=== PATIENT | male | born 1950 | race Caucasian/White ===

== ENCOUNTER 2020-11-22 09:17 | Outpatient (REF) | payer OTHER, SELFPAY ==
[2020-11-22 12:04] LABS: Alanine Aminotransferase 40 U/L (0-40); Anion Gap 15 (12-20); Aspartate Amino Transferase 26 U/L (5-37); Blood Urea Nitrogen 15 mg/dL (9-16); Calcium 8.9 mg/dL (8.4-10.2); Carbon Dioxide 27 mmol/L (22-29); Chloride 102 mmol/L (96-108); Cholesterol 226 mg/dL; Estimated Glomerular Filt Rate 57; Glucose Fasting 88 mg/dL (60-99); HDL Cholesterol 46 mg/dL; LDL Cholesterol Calculated 127 mg/dl; Potassium 3.8 mmol/l (3.3-5.1); Sodium 140 mmol/L (135-145); Triglycerides 265 mg/dL
[2020-11-22 12:09] LABS: Vitamin D 25-OH Total 26.7 ng/mL (>30)
== END 2020-11-22 09:18 | disposition home or self-care (01) ==
LOC: HO.HMGCLDS 09:17
PROVIDERS: PCP Internal Medicine; Visit Provider Internal Medicine
DX: I10 Essential (primary) hypertension (principal); E78.5 Hyperlipidemia, unspecified
CPT/HCPCS: 36415; 80048; 80061; 82306; 84450; 84460

== ENCOUNTER 2021-03-05 10:32 | Outpatient (REF) | payer OTHER, SELFPAY ==
[2021-03-05 12:17] LABS: Vitamin D 25-OH Total 62.2 ng/mL (>30)
[2021-03-05 12:24] LABS: Alanine Aminotransferase 29 U/L (0-40); Anion Gap 14 (12-20); Aspartate Amino Transferase 26 U/L (5-37); Blood Urea Nitrogen 17 mg/dL (9-16); Calcium 9.3 mg/dL (8.4-10.2); Carbon Dioxide 25 mmol/L (22-29); Chloride 106 mmol/L (96-108); Cholesterol 201 mg/dL; Estimated Glomerular Filt Rate 56; Glucose Fasting 93 mg/dL (60-99); HDL Cholesterol 43 mg/dL; LDL Cholesterol Calculated 116 mg/dl; Potassium 3.8 mmol/L (3.3-5.1); Sodium 141 mmol/L (135-145); Triglycerides 213 mg/dL
== END 2021-03-05 10:33 | disposition home or self-care (01) ==
LOC: HO.HMGCLDS 10:32
PROVIDERS: PCP Internal Medicine; Visit Provider Internal Medicine
DX: E78.5 Hyperlipidemia, unspecified (principal); I10 Essential (primary) hypertension
CPT/HCPCS: 36415; 80048; 80061; 82306; 84450; 84460

== ENCOUNTER 2021-03-21 08:26 | Outpatient (REF) | payer OTHER, SELFPAY | END 2021-03-21 08:27 | disposition home or self-care (01) | LOC: HO.HMGCLDS 08:26 | PROVIDERS: PCP Internal Medicine; Visit Provider Urology | DX: Z12.5 Encounter for screening for malignant neoplasm of prostate (principal); N40.1 Benign prostatic hyperplasia with lower urinary tract symptoms | CPT/HCPCS: 36415; 84153 ==

== ENCOUNTER → 2021-03-28 09:25 | Outpatient (BNVA) | payer OTHER, SELFPAY | PROVIDERS: PCP Internal Medicine; Visit Provider Urology | DX: Z13.89 Encounter for screening for other disorder (principal) | CPT/HCPCS: 99212 ==

== ENCOUNTER 2021-09-03 09:01 | Outpatient (REF) | payer OTHER, SELFPAY ==
[2021-09-03 12:03] LABS: Alanine Aminotransferase 29 U/L (0-40); Anion Gap 13 (12-20); Aspartate Amino Transferase 42 U/L (5-37); Blood Urea Nitrogen 13 mg/dL (9-16); Carbon Dioxide 26 mmol/L (22-29); Chloride 104 mmol/L (96-108); Cholesterol 180 mg/dL; Estimated Glomerular Filt Rate 57; Glucose Fasting 104 mg/dL (60-99); HDL Cholesterol 44 mg/dL; LDL Cholesterol Calculated 111 mg/dl; Potassium 4.4 mmol/L (3.3-5.1); Sodium 139 mmol/L (135-145); Triglycerides 129 mg/dL
== END 2021-09-03 09:02 | disposition home or self-care (01) ==
LOC: HO.HMGCLDS 09:01
PROVIDERS: PCP Internal Medicine; Visit Provider Internal Medicine
DX: E78.5 Hyperlipidemia, unspecified (principal); I10 Essential (primary) hypertension
CPT/HCPCS: 36415; 80048; 80061; 84450; 84460

== ENCOUNTER → 2021-10-02 09:31 | Outpatient (BNVA) | payer OTHER, SELFPAY | PROVIDERS: PCP Internal Medicine; Visit Provider Urology | DX: N40.0 Benign prostatic hyperplasia without lower urinary tract symptoms (principal); R97.20 Elevated prostate specific antigen [PSA] | CPT/HCPCS: 51798; 99212 ==

== ENCOUNTER 2022-01-08 08:52 | Outpatient (REF) | payer OTHER, SELFPAY ==
[2022-01-08 12:02] LABS: Alanine Aminotransferase 29 U/L (0-40); Albumin Level 4.2 g/dL (3.5-5.0); Alkaline Phosphatase 40 U/L (39-117); Anion Gap 12 (12-20); Aspartate Amino Transferase 22 U/L (5-37); Blood Urea Nitrogen 17 mg/dL (9-16); Calcium 9.3 mg/dL (8.4-10.2); Carbon Dioxide 29 mmol/L (22-29); Chloride 105 mmol/L (96-108); Cholesterol 189 mg/dL; Estimated Glomerular Filt Rate 53; Glucose Fasting 96 mg/dL (60-99); HDL Cholesterol 39 mg/dL; LDL Cholesterol Calculated 106 mg/dl; Potassium 4.6 mmol/L (3.3-5.1); Sodium 141 mmol/L (135-145); Total Protein 7.1 g/dL (6.5-8.0); Triglycerides 220 mg/dL
[2022-01-08 12:11] LABS: Vitamin D 25-OH Total 57.4 ng/mL (>30)
== END 2022-01-08 08:53 | disposition home or self-care (01) ==
LOC: HO.HMGCLDS 08:52
PROVIDERS: PCP Internal Medicine; Visit Provider Internal Medicine
DX: I10 Essential (primary) hypertension (principal); E78.5 Hyperlipidemia, unspecified; Z86.39 Personal history of other endocrine, nutritional and metabolic disease
CPT/HCPCS: 36415; 80053; 80061; 82306

== ENCOUNTER 2022-07-09 08:55 | Outpatient (REF) | payer OTHER, SELFPAY ==
[2022-07-09 11:43] LABS: Alanine Aminotransferase 21 U/L (0-40); Anion Gap 16 (12-20); Aspartate Amino Transferase 23 U/L (5-37); Blood Urea Nitrogen 14 mg/dL (9-16); Calcium 9.2 mg/dL (8.4-10.2); Carbon Dioxide 25 mmol/L (22-29); Chloride 103 mmol/L (96-108); Cholesterol 232 mg/dL; Estimated Glomerular Filt Rate 58; Glucose Fasting 97 mg/dL (60-99); HDL Cholesterol 44 mg/dL; LDL Cholesterol Calculated 135 mg/dl; Sodium 140 mmol/L (135-145); Triglycerides 267 mg/dL
== END 2022-07-09 08:56 | disposition home or self-care (01) ==
LOC: HO.HMGCLDS 08:55
PROVIDERS: PCP Internal Medicine; Visit Provider Internal Medicine
DX: E78.5 Hyperlipidemia, unspecified (principal); I10 Essential (primary) hypertension
CPT/HCPCS: 36415; 80048; 80061; 82306; 84450; 84460

== ENCOUNTER → 2022-10-07 09:18 | Outpatient (BNVA) | payer OTHER, SELFPAY | PROVIDERS: PCP Internal Medicine; Visit Provider Urology | DX: N40.0 Benign prostatic hyperplasia without lower urinary tract symptoms (principal); R97.20 Elevated prostate specific antigen [PSA] | CPT/HCPCS: 51798; 99212 ==

== ENCOUNTER 2022-10-20 08:20 | Outpatient (REF) | payer OTHER, SELFPAY ==
[2022-10-20 12:55] LABS: Alanine Aminotransferase 27 U/L (0-40); Anion Gap 12 (12-20); Aspartate Amino Transferase 21 U/L (5-37); Blood Urea Nitrogen 15 mg/dL (9-16); Calcium 9.4 mg/dL (8.4-10.2); Carbon Dioxide 28 mmol/L (22-29); Chloride 104 mmol/L (96-108); Cholesterol 235 mg/dL; Estimated Glomerular Filt Rate 59; Glucose Fasting 96 mg/dL (60-99); HDL Cholesterol 43 mg/dL; LDL Cholesterol Calculated 135 mg/dl; Potassium 4.1 mmol/L (3.3-5.1); Sodium 140 mmol/L (135-145); Triglycerides 285 mg/dL
== END 2022-10-20 08:21 | disposition home or self-care (01) ==
LOC: HO.HMGCLDS 08:20
PROVIDERS: PCP Internal Medicine; Visit Provider Internal Medicine
DX: E78.5 Hyperlipidemia, unspecified (principal); I10 Essential (primary) hypertension
CPT/HCPCS: 36415; 80048; 80061; 84450; 84460

== ENCOUNTER 2023-02-18 08:26 | Outpatient (REF) | payer OTHER, SELFPAY ==
[2023-02-18 12:09] LABS: Alanine Aminotransferase 24 U/L (0-40); Anion Gap 11 (12-20); Aspartate Amino Transferase 28 U/L (5-37); Blood Urea Nitrogen 16 mg/dL (9-16); Calcium 9.1 mg/dL (8.4-10.2); Carbon Dioxide 27 mmol/L (22-29); Chloride 107 mmol/L (96-108); Cholesterol 188 mg/dL; Estimated Glomerular Filt Rate 60; Glucose Fasting 94 mg/dL (60-99); HDL Cholesterol 48 mg/dL; LDL Cholesterol Calculated 109 mg/dl; Sodium 141 mmol/L (135-145); Triglycerides 155 mg/dL
[2023-02-18 12:25] LABS: Vitamin D 25-OH Total 58.8 ng/mL (>30)
== END 2023-02-18 08:27 | disposition home or self-care (01) ==
LOC: HO.HMGCLDS 08:26
PROVIDERS: PCP Internal Medicine; Visit Provider Internal Medicine
DX: I10 Essential (primary) hypertension (principal); E78.5 Hyperlipidemia, unspecified
CPT/HCPCS: 36415; 80048; 80061; 82306; 84450; 84460

== ENCOUNTER 2023-02-23 11:47 | Outpatient (AMB) | payer OTHER, SELFPAY ==
--- NOTE | 2023-02-23 11:50 | A.OFFPC_ITS ---
Vital Signs 02/23/23 11:51 Height 5 ft 10 in Weight 206 lb 2 oz BMI 29.5 BP 130/76 Blood Pressure Location Rt brachial Position Sitting Pulse 82 Pulse Source Pulse Oximeter Pulse Oximetry (%) 97 Oxygen Delivery Method Room Air Intake Visit Reasons: Annual PE Intake Note: Pt is here today for his annual PE. Allergies No Known Allergies [No Known Allergies*] Allergy (Verified 11/09/23 15:52) Medication List - Last Reconciled 02/23/23 by Dee Dee Kincaid MD amlodipine 10 mg PO DAILY aspirin (Enteric Coated Aspirin) 81 mg PO DAILY coenzyme Q10 (Co Q-10) 100 mg PO DAILY finasteride 5 mg orally 3x week; hydrochlorothiazide 12.5 mg (1/2 x 25 mg) PO DAILY lisinopril 40 mg PO DAILY multivitamin 1 tab PO DAILY omega 1-omv-mlu-fish oil-krill 700 mg-600 mg- 900 mg (MegaRed Advanced 4-in-1) caps PO pravastatin 40 mg PO BEDTIME Tobacco use date assessed: 02/23/23 Fall risk assessment: No Falls in past year Last assessed Fall Risk: 02/23/23 HPI Annual PE HPI Details 72-year-old male with hypertension, dysl ipidemia, and benign prostatic hyperplasia , here today for a physical exam. He has been feeling well, compliant with taking his medications and following recommended diet. Recent fasting labs showed normal fasting sugar cholesterol, vitamin-D level ,and renal function. Blood pressure within normal limits on current treatment. Up-to-date with his colon cancer screening, had a negative Cologuard testing 2021 Up-to-date with all his vaccinations, including the COVID bivalent booster but needs an updated pneumonia vaccine/Prevnar 20. . Currently taking care of his of 48 years , who is on hospice. States that he is getting lot of support from [facility], hospice nurses and family members [facility] Medical History (Updated 11/09/23 @ 16:19 by Dee Dee Kincaid MD) Anxiety and depression Mixed dyslipidemia Impaired fasting glucose Pruritus Essential hypertension Benign prostatic hyperplasia Surgical History Status post thoracostomy tube placement Family History Father CAD (coronary artery disease) HTN (hypertension) Myocardial infarction Mother Dementia Brother BPH (benign prostatic hyperplasia) Social History Housing: House Alcohol intake: never Patient Tobacco Use Status: Former Tobacco user Years Smoked: 10 yrs e-Cigarette/Vaping Use: Never Used Current occupational status: retired Cognitive needs: No Hearing needs: No Vision needs: No Questionnaire PHQ-9 Over the last 2 weeks, how often have you been bothered by any of the following problems? 1. Little interest or pleasure in doing things: not at all 2. Feeling down, depressed, or hopeless: not at all 3. Trouble falling or staying asleep, or sleeping too much: not at all 4. Feeling tired or having little energy: not at all 5. Poor appetite or overeating: not at all 6. Feeling bad about yourself - or that you are a failure or have let yourself or your family down: not at all 7. Trouble concentrating on things, such as reading the newspaper or watching television: not at all 8. Moving or speaking so slowly that other people could have noticed. Or the opposite - being so fidgety or restless that you have been moving around a lot more than usual: not at all 9. Thoughts that you would be better off or of hurting yourself in some way: not at all Total score: 0 Depression Screening Interpretation: Negative 42379 - PHQ-9 Billing: Yes Source: Developed by Drs. Bharat Velasquez, Jena Lynne, Emery Maier and colleagues, with an educational sadie from [employer]. Thrive Questionnaire Date Thrive assessed: 10/24/22 AUDIT C Alcohol Use Questionnaire (AUDIT-C) 1. How often do you have a drink containing alcohol?: Never Total Score: 0 RIGOBERTO-7 AMB Questionnaire RIGOBERTO-7 Date RIGOBERTO - 7 assessed: 10/24/22 Source: Developed by Drs. Bharat Velasquez, Jena Lynne, Emery Maier and colleagues, with an educational sadie from [employer]. Review of Systems Const Denies body aches, Denies fatigue, Denies fever(s), Denies headache(s) and Denies weakness Eyes Details: Sees Dr. Medel for his routine eye exam, currently being monitored for glaucoma Denies change in vision ENT Denies dizziness, Denies headache(s), Denies nasal congestion, Denies nasal discharge and Denies sore throat Card Denies chest pain, Denies lightheadedness, Denies palpitations and Denies d yspnea Resp Denies chest congestion, Denies cough, Denies dyspnea and Denies wheezing GI Denies abdominal pain, Denies change in bowel habits and Denies heartburn Denies dysuria, Denies urinary frequency and Denies urinary urgency Musc Reports no additional complaints Skin/Breast Denies breast pain, Denies breast mass, Denies lesions and Denies rash Neuro Denies dizziness, Denies headache(s) and Denies weakness Psych Reports no additional complaints Endo Denies fatigue, Denies polydipsia, Denies polyuria and Denies palpitations Luis/Lymph Denies easy bruising Aller/Immun Denies seasonal rhinorrhea and Denies wheezing Physical exam (Primary Care) Vital Signs: Last Vital Signs Pulse 82 02/23/23 11:51 BP 130/76 02/23/23 11:51 Pulse Ox 97 02/23/23 11:51 Oxygen Delivery Method Room Air 02/23/23 11:51 BMI result Body Mass Index 29.5 BMI Assessment/Plan discussion: High BMI High, discussed plan: lifestyle, weight reduction, dietary and physical activity Tobacco/Smoking Status: Tobacco use Status Tobacco use date assessed 02/23/23 02/23/23 11:54 Patient Tobacco Use Status Former Tobacco user 02/23/23 11:54 e-Cigarette/Vaping Use Never Used 02/23/23 11:54 PHQ-9: PHQ-9 Score PHQ-9: Total score 0 02/23/23 12:53 Depression Screening Interpretation: Negative Thrive Assessment: Date of Thrive Assessment Date Thrive assessed 10/24/22 02/23/23 11:54 Const General: cooperative, healthy appearing and comfortable Nutritional Appearance: obese Orientation/consciousness: patient oriented x3 Limitations: no limitations HENMT Head: Yes normocephalic and Yes atraumatic Ears: external ears normal General nose exam: Normal external nose present Face and sinus: Yes face symmetric Mouth: Normal oral and palatal mucosa present and moist mucous membranes Eyes General: appearance normal, both eyes and all related structures Neck Neck: Yes full ROM, Yes no lymphadenopathy and Yes supple Resp Effort & Inspection: normal respiratory effort and able to speak in complete sentences Auscultation: clear to auscultation bilaterally Cardio Rate: regular rate Rhythm: regular rhythm Heart sounds: S1 normal heart sound present and S2 normal heart sound present GI Inspection: Yes obesity Palpation (GI): Soft to palpation, nontender and no guarding Auscultation: normal bowel sounds Male General Exam: Yes normal external exam Back/Spine/Pelvis Back: No back tenderness Skin General skin exam: no rashes or lesions noted Neuro General: patient oriented x3, gait normal, moves all extremities and no focal motor deficits Extrem General: Yes full ROM, Yes no joint enlargement, Yes no pedal edema and Yes normal gait Psych Appearance: grossly normal Mental Status: mental status grossly normal Speech and movement: Normal speech and movement present Affect: normal affect Thought process: Normal thought process present Immunizations pneumoc 20-lito conj-dip cr(PF) 0.5 mL IM syringe Performing Provider: Dee Dee Kincaid MD Performing Location: [facility] Administered by: EVANGELINA Tracy on 02/23/23 12:54 Dose Route Admin Location Dispensed Lot Number Expiration Date NDC Almond Paste Mixer 0.5 mL IM Left Deltoid 0.5 mL [id number] 07/02/24 7862-5747-47 [employer] VIS Given Date VIS Provided VIS Publication Date 02/23/23 Single Vaccine 21 Eligibility Eligibility Date Funding Source Not VFC Eligible 02/23/23 Private Results Reviewed Results Reviewed: RUN: 02/23/23 1113 PAGE 1 [facility] [address] [place] [id number] Fuel Management Handler: Bartolome Montalvo M.D. Specimen Inquiry Name: Mari Pedersen Age/Sex: 50/F : 07/30/1972 Unit#: [id number] Attend Dr: Dee Dee Kincaid MD Re02/13/23 Status: DEP REF Location: .LAB Disch: SPEC : [id number] DAVEY: 02/13/23 STATUS: COMP REQ : [id number] RECD: 02/13/[address]: Dee Dee Kincaid MD COMP: 02/13/23-1155 ENTERED: 02/13/230928 [facility] DR: ORDERED: Met Prof Fast, AST, ALT, Lipid Panel, Vitamin D 25-OH Test Result Flag Reference Site Sodium 141 135-145 mmol/L Potassium 4.0 3.3-5.1 mmol/L CL 105 96-108 mmol/L CO2 27 22-29 mmol/L Gap 13 12-20 BUN 15 9-16 mg/dL Creat 0.95 0.5-1.4 mg/dL EGFR > 60 NOTE: For -[place] individuals, multiply the result by 1.210. Chronic Kidney Disease: Estimated GFR < 60 mL/min/1.73m2 Severe Kidney Disease: Estimated GFR < 15 mL/min/1.73m2 FBS 96 60-99 mg/dL CA 9.2 8.4-10.2 mg/dL AST (GOT) 14 5-31 U/L ALT (GPT) 16 0-31 U/L Triglyceride 113 mg/dL Desirable Triglyceride: less than 150 mg/dL Borderline High Triglyceride 150-199 mg/dL High Triglyceride: 200-499 mg/dL Very High Triglyceride: greater than or equal to 5OO mg/dL Chol 143 mg/dL Desirable Cholesterol: less than 200 mg/dL Borderline High Cholesterol: 200-239 mg/dL High Cholesterol: greater than 239 mg/dL LDL Calculated 79 mg/dl Desirable LDL: less than 100 mg/dL Near Optimal/Above Optimal LDL: 110-129 mg/dL Borderline High LDL: 130-159 mg/dL High LDL: 160-189 mg/dL Very High LDL: greater than or equal to 190 mg/dL HDL 42 mg/dL Desirable HDL: greater than 40 mg/dL Note: This HDL assay may give artificially low results in patients with liver disease. Vit D 25-OH Tot 37.3 >30 ng/mL Health Based Reference Values* < 20 ng/mL Deficient 20-30 ng/mL Insufficient > 30 ng/mL Sufficient Assessment and Plan Assessment & Plan (1) Annual visit for general adult medical examination with abnormal findings: Code(s): Z00.01 - Encounter for general adult medical examination with abnormal findings Plan: Fasting labs results reviewed with patient. Continue with regular dental visit every [address] Medel for his regular eye exams. Take adequate calcium in diet and vitamin-D 3 at 2000 IU per cap once a day, in addition to weight-bearing exercises to help maintain good muscle tone and weight control. Instructed to do self-testicular exam. Date with his colon cancer screening, had a Cologuard testing done last year, to be repeated again in 2024. Up-to-date with all his vaccinations except for his Prevnar 20 which was given today (2) Essential hypertension: Code(s): I10 - Essential (primary) hypertension Plan: Blood pressure at goal of less than 130/80. Continue with current medication. Reinforced importance of following a low sodium diet, getting regular exercise, and lowering stress levels. (3) Dyslipidemia: Code(s): E78.5 - Hyperlipidemia, unspecified Plan: Reviewed recent fasting lipid profile with patient with levels within normal limits . Continue with pravastatin 40 mg at bedtime and [place] 3 fatty acid supplements , in addition to adherence to low-cholesterol diet and regular exercise, at least 30 minutes 3 to 4 times a week. Advised patient to make healthy food choices, eat more fruits, vegetables, whole grains, wild caught fish and low-fat dairy. Limit amount of meat and fried or fatty food products, as well as processed foods and fast foods. Follow-up scheduled with repeat fasting lipid panel in 6 months. (4) Benign prostatic hyperplasia: Code(s): N40.0 - Benign prostatic hyperplasia without lower urinary tract symptoms Plan: Followed by Dr. Peñaloza, currently on finasteride, has an appointment scheduled for follow-up October 2023 Orders: Orders Lipid Panel 6 Months E78.5 - Hyperlipidemia, unspecified, I10 - Essential (primary) hypertension Alanine Aminotransferase 6 Months E78.5 - Hyperlipidemia, unspecified, I10 - Essential (primary) hypertension Aspartate Amino Transferase 6 Months E78.5 - Hyperlipidemia, unspecified, I10 - Essential (primary) hypertension Basic Metabolic Panel Fasting 6 Months E78.5 - Hyperlipidemia, unspecified, I10 - Essential (primary) hypertension Pneumococcal 20 Immunization 02/23/23 Z23 - Encounter for immunization Coding Level of Care Code Est Pt Prev Care >65y(13713) Diagnoses Annual visit for general adult medical examination with abnormal findings Z00.01 Essential hypertension I10 Dyslipidemia E78.5 Benign prostatic hyperplasia N40.0
[2023-02-23 11:51] VITALS: BP 130/76; PULSE 82; O2SAT 97; BMI 29.5
== END 2023-02-23 12:55 | disposition home or self-care (01) ==
LOC: HO.HMGC 11:47
PROVIDERS: PCP Internal Medicine; Visit Provider Internal Medicine
DX: Z00.01 Encounter for general adult medical examination with abnormal findings (principal); I10 Essential (primary) hypertension; E78.5 Hyperlipidemia, unspecified; N40.0 Benign prostatic hyperplasia without lower urinary tract symptoms
CPT/HCPCS: 99397; 99499

== ENCOUNTER 2023-08-18 07:49 | Outpatient (REF) | payer OTHER, SELFPAY ==
[2023-08-18 12:06] LABS: Alanine Aminotransferase 17 U/L (0-40); Anion Gap 15 (12-20); Aspartate Amino Transferase 22 U/L (5-37); Blood Urea Nitrogen 13 mg/dL (9-16); Calcium 9.1 mg/dL (8.4-10.2); Carbon Dioxide 20 mmol/L (22-29); Chloride 108 mmol/L (96-108); Cholesterol 206 mg/dL (<200); Estimated Glomerular Filt Rate > 60; Glucose Fasting 97 mg/dL (60-99); HDL Cholesterol 63 mg/dL (>40); LDL Cholesterol Calculated 124 mg/dL (<100); Potassium 3.5 mmol/L (3.3-5.1); Sodium 139 mmol/L (135-145); Triglycerides 97 mg/dL (<150)
== END 2023-08-18 07:50 | disposition home or self-care (01) ==
LOC: HO.HMGCLDS 07:49
PROVIDERS: PCP Internal Medicine; Visit Provider Internal Medicine
DX: E78.5 Hyperlipidemia, unspecified (principal); I10 Essential (primary) hypertension
CPT/HCPCS: 36415; 80048; 80061; 84450; 84460

== ENCOUNTER 2023-08-24 10:33 | Outpatient (AMB) | payer OTHER, SELFPAY ==
[2023-08-24 11:13] VITALS: BP 130/82; PULSE 61; O2SAT 99; BMI 25.0
--- NOTE | 2023-08-24 11:13 | A.OFFPC_ITS ---
Vital Signs 08/24/23 11:13 Height 5 ft 10 in Weight 174 lb 6 oz BMI 25.0 BP 130/82 Blood Pressure Location Rt brachial Position Sitting Pulse 61 Pulse Source Pulse Oximeter Pulse Oximetry (%) 99 Oxygen Delivery Method Room Air Intake Visit Reasons: 6 Month follow up Intake Note: pt is here to follow up for lab results Allergies No Known Allergies [No Known Allergies*] Allergy (Verified 11/09/23 15:52) Medication List - Last Reconciled 08/24/23 by Dee Dee Kincaid MD amlodipine 10 mg PO DAILY aspirin (Enteric Coated Aspirin) 81 mg PO DAILY coenzyme Q10 (Co Q-10) 100 mg PO DAILY finasteride 5 mg orally 3x week; hydrochlorothiazide 12.5 mg (1/2 x 25 mg) PO DAILY lisinopril 40 mg PO DAILY multivitamin 1 tab PO DAILY omega 0-acc-ubd-fish oil-krill 700 mg-600 mg- 900 mg (MegaRed Advanced 4-in-1) caps PO pravastatin 40 mg PO BEDTIME Tobacco use date assessed: 08/24/23 Fall risk assessment: No Falls in past year Last assessed Fall Risk: 08/24/23 Dental Screening Dental Screen Date: 08/24/23 Did you have a dental visit in the last 12 months?: No Did you have a dental problem in the last 6 months where you did not have access to dental care?: No Was dental information given to patient?: No HPI 6 Month follow up HPI Details 73-year-old male with hypertension hyper lipidemia, here today for follow-up. Has been compliant with taking his medications and following recommended diet with recent fasting labs showing results within normal limits. Blood pressure has been stable controlled on present treatment. Has been having recurrent episodes of low mood and poor appetite with difficulty sleeping at night. Has been under lot of stress lately taking care of his . Declines referral for counseling. [facility] Medical History (Updated 11/09/23 @ 16:19 by Dee Dee Kincaid MD) Anxiety and depression Mixed dyslipidemia Impaired fasting glucose Pruritus Essential hypertension Benign prostatic hyperplasia Surgical History Status post thoracostomy tube placement Family History Father CAD (coronary artery disease) HTN (hypertension) Myocardial infarction Mother Dementia Brother BPH (benign prostatic hyperplasia) Social History Housing: House Alcohol intake: never Patient Tobacco Use Status: Former Tobacco user Years Smoked: 10 yrs e-Cigarette/Vaping Use: Never Used Current occupational status: retired Cognitive needs: No Hearing needs: No Vision needs: No Questionnaire PHQ-9 Over the last 2 weeks, how often have you been bothered by any of the following problems? 1. Little interest or pleasure in doing things: several days 2. Feeling down, depressed, or hopeless: nearly every day 3. Trouble falling or staying asleep, or sleeping too much: nearly every day 4. Feeling tired or having little energy: several days 5. Poor appetite or overeating: nearly every day 6. Feeling bad about yourself - or that you are a failure or have let yourself or your family down: more than half the days 7. Trouble concentrating on things, such as reading the newspaper or watching television: more than half the days 8. Moving or speaking so slowly that other people could have noticed. Or the opposite - being so fidgety or restless that you have been moving around a lot more than usual: not at all 9. Thoughts that you would be better off or of hurting yourself in some w ay: not at all Total score: 15 Depression Screening Interpretation: Positive Depression Screening Follow-up: New Medication prescribed (Will start a new medication, declines counseling) Depression Screening Done: Yes 77599 - PHQ-9 Billing: Yes Source: Developed by Drs. Bharat Velasquez, Jena Lynne, Emery Maier and colleagues, with an educational sadie from [employer]. Thrive Questionnaire Date Thrive assessed: 10/24/22 AUDIT C Alcohol Use Questionnaire (AUDIT-C) 1. How often do you have a drink containing alcohol?: Never Total Score: 0 RIGOBERTO-7 AMB Questionnaire RIGOBERTO-7 Date RIGOBERTO - 7 assessed: 10/24/22 Feeling nervous, anxious, or on edge: 1 = Several days Not being able to stop or control worryin = Not at all Worrying too much about different things: 0 = Not at all Trouble relaxin = More than half the days Being so restless that it is hard to sit still: 0 = Not at all Becoming easily annoyed or irritable: 0 = Not at all Feeling afraid as if something awful might happen: 0 = Not at all Total RIGOBERTO-7 score (0-4 normal; 5-9 mild; 10-14 moderate; 15-21 severe): 3 Source: Developed by Drs. Bharat Velasquez, Jena Lynne, Emery Maier and colleagues, with an educational sadie from [employer]. RIGOBERTO-7 Assessment Billing RIGOBERTO-7 Assessment Tool: RIGOBERTO-7 Assessment 47019 Review of Systems Const Reports as per HPI, Denies headache(s) and Denies weakness ENT Denies dizziness, Denies headache(s), Denies nasal congestion, Denies nasal discharge and Denies sore throat Card Denies chest pain, Denies lightheadedness, Denies palpitations and Denies dyspnea Resp Denies chest congestion, Denies cough and Denies dyspnea GI Denies abdominal pain, Denies change in bowel habits and Denies heartburn Denies dysuria, Denies urinary frequency and Denies urinary urgency Musc Reports no additional complaints Neuro Denies dizziness, Denies headache(s) and Denies weakness Psych Reports as per HPI Endo Denies polydipsia, Denies polyuria and Denies palpitations Physical exam (Primary Care) Vital Signs: Last Vital Signs Pulse 61 08/24/23 11:13 BP 130/82 08/24/23 11:13 Pulse Ox 99 08/24/23 11:13 Oxygen Delivery Method Room Air 08/24/23 11:13 BMI result Body Mass Index 25.0 Tobacco/Smoking Status: Tobacco use Status Tobacco use date assessed 08/24/23 08/24/23 11:16 Patient Tobacco Use Status Former Tobacco user 08/24/23 11:15 e-Cigarette/Vaping Use Never Used 08/24/23 11:15 PHQ-9: PHQ-9 Score PHQ-9: Total score 15 08/24/23 11:29 Depression Screening Interpretation: Positive Depression Screening Follow-up: New Medication prescribed (Will start a new medication, declines counseling) Thrive Assessment: Date of Thrive Assessment Date Thrive assessed 10/24/22 08/24/23 11:15 Const General: cooperative, healthy appearing and comfortable Nutritional Appearance: obese Orientation/consciousness: patient oriented x3 HENMT Head: Yes normocephalic Ears: external ears normal Face and sinus: Yes face symmetric Mouth: Normal oral and palatal mucosa present and moist mucous membranes Neck Neck: Yes full ROM, Yes no lymphadenopathy and Yes supple Resp Effort & Inspection: normal respiratory effort and able to speak in complete sentences Auscultation: clear to auscultation bilaterally Cardio Rate: regular rate Rhythm: regular rhythm Heart sounds: S1 normal heart sound present and S2 normal heart sound present GI Inspection: Yes obesity Palpation (GI): Soft to palpation, nontender and no guarding Auscultation: normal bowel sounds Neuro General: patient oriented x3, gait normal, moves all extremities and no focal motor deficits Extrem General: Yes full ROM, Yes no joint enlargement, Yes no pedal edema and Yes normal gait Psych Appearance: grossly normal Mental Status: mental status grossly normal Speech and movement: Normal speech and movement present Affect: normal affect Thought process: Normal thought process present Results Reviewed Results Reviewed: ENTERED: 08/18/[address]: ORDERED: Met Prof Fast, AST, ALT, Lipid Panel Test Result Flag Reference Site Sodium 139 135-145 mmol/L Potassium 3.5 3.3-5.1 mmol/L CL 108 96-108 mmol/L CO2 20 L 22-29 mmol/L Gap 15 12-20 BUN 13 9-16 mg/dL Creat 0.95 0.5-1.4 mg/dL EGFR > 60 NOTE: For -[place] individuals, multiply the result by 1.210. Chronic Kidney Disease: Estimated GFR < 60 mL/min/1.73m2 Severe Kidney Disease: Estimated GFR < 15 mL/min/1.73m2 FBS 97 60-99 mg/dL CA 9.1 8.4-10.2 mg/dL AST (GOT) 22 5-37 U/L ALT (GPT) 17 0-40 U/L Triglyceride 97 <150 mg/dL Desirable Triglyceride: less than 150 mg/dL Borderline High Triglyceride 150-199 mg/dL High Triglyceride: 200-499 mg/dL Very High Triglyceride: greater than or equal to 5OO mg/dL Cholesterol 206 H <200 mg/dL Desirable Cholesterol: less than 200 mg/dL Borderline High Cholesterol: 200-239 mg/dL High Cholesterol: greater than 239 mg/dL LDL Calculated 124 H <100 mg/dL Desirable LDL: less than 100 mg/dL Near Optimal/Above Optimal LDL: 110-129 mg/dL Borderline High LDL: 130-159 mg/dL High LDL: 160-189 mg/dL Very High LDL: greater than or equal to 190 mg/dL HDL 63 >40 mg/dL Desirable HDL: greater than 40 mg/dL Note: This HDL assay may give artificially low results in patients with liver disease. Assessment and Plan Assessment & Plan (1) Mixed dyslipidemia: Code(s): E78.2 - Mixed hyperlipidemia Plan: Labs reviewed. Will continue on pravastatin 40 mg at bedtime and [place] 3 fatty acid supplements, and reinforced importance of following a low-cholesterol diet and getting regular exercise. (2) Anxiety and depression: Code(s): F41.9 - Anxiety disorder, unspecified; F32.A - Depression, unspecified Plan: Will start on buspirone 5 mg per tablet to take 1 tablet 3 times a day. cDeclined referral for counseling. Discussed other ways to relieve stress including : exercise or a massage, Get enough rest, Avoid alcohol, caffeine, nicotine, and illegal drugs which can increase your anxiety level and cause sleep problems. Follow-up in 4 weeks after starting new medication (3) Essential hypertension: Code(s): I10 - Essential (primary) hypertension Plan: Blood pressure at goal of less than 130/80. Continue with lisinopril hydrochlorothiazide at the same dose. Reinforced importance of following a low sodium diet, getting regular exercise, and lowering stress levels. Medications: New buspirone 5 mg PO TID 90 tabs 1RF 30 days Coding Level of Care Code Est Pt Level 4 (24373) Diagnoses Mixed dyslipidemia E78.2 Anxiety and depression F41.9; F32.A Essential hypertension I10 Additional Codes RIGOBERTO-7 Assessment Billing - RIGOBERTO-7 Assessment Tool: RIGOBERTO-7 Assessment [id number] ([id number])
== END 2023-08-24 11:38 | disposition home or self-care (01) ==
PROVIDERS: Visit Provider Internal Medicine
DX: E78.2 Mixed hyperlipidemia (principal); F41.9 Anxiety disorder, unspecified; F32.A Depression, unspecified; I10 Essential (primary) hypertension
CPT/HCPCS: 96127; 99214; 99499

== ENCOUNTER 2023-09-28 11:29 | Outpatient (AMB) | payer OTHER, SELFPAY ==
--- NOTE | 2023-09-28 12:01 | A.OFFPC_ITS ---
Vital Signs 09/28/23 12:02 Height 5 ft 10 in Weight 181 lb 2 oz BMI 26.0 BP 132/80 Blood Pressure Location Rt brachial Position Sitting Pulse 62 Pulse Source Pulse Oximeter Pulse Oximetry (%) 97 Oxygen Delivery Method Room Air Intake Visit Reasons: ffup depression after starting meds Intake Note: pt is here to follow up after starting medication Allergies No Known Allergies [No Known Allergies*] Allergy (Verified 11/09/23 15:52) Medication List - Last Reconciled 09/28/23 by Dee Dee Kincaid MD amlodipine 10 mg PO DAILY aspirin (Enteric Coated Aspirin) 81 mg PO DAILY buspirone 5 mg PO TID 30 days coenzyme Q10 (Co Q-10) 100 mg PO DAILY finasteride 5 mg orally 3x week; hydrochlorothiazide 12.5 mg (1/2 x 25 mg) PO DAILY lisinopril 40 mg PO DAILY multivitamin 1 tab PO DAILY omega 3-glh-fqt-fish oil-krill 700 mg-600 mg- 900 mg (MegaRed Advanced 4-in-1) caps PO pravastatin 40 mg PO BEDTIME Tobacco use date assessed: 09/28/23 Fall risk assessment: No Falls in past year Last assessed Fall Risk: 09/28/23 Dental Screening Dental Screen Date: 09/28/23 Did you have a dental visit in the last 12 months?: No Did you have a dental problem in the last 6 months where you did not have access to dental care?: No Was dental information given to patient?: No HPI ffup depression after starting meds HPI Details 73-year-old male with mixed anxiety and depression, here today for follow-up. Was started on buspirone 5 mg 1 tablet 3 times a day 4 weeks ago, states that he does not really notice any change in his mood, still having episodes of depression index acute anxiety attacks. Denies any adverse effects from the medication but feels like dose is not enough with controlling his symptoms. [facility] Medical History (Updated 11/09/23 @ 16:19 by Dee Dee Kincaid MD) Anxiety and depression Mixed dyslipidemia Impaired fasting glucose Pruritus Essential hypertension Benign prostatic hyperplasia Surgical History Status post thoracostomy tube placement Family History Father CAD (coronary artery disease) HTN (hypertension) Myocardial infarction Mother Dementia Brother BPH (benign prostatic hyperplasia) Social History Housing: House Alcohol intake: never Patient Tobacco Use Status: Former Tobacco user Years Smoked: 10 yrs e-Cigarette/Vaping Use: Never Used Current occupational status: retired Cognitive needs: No Hearing needs: No Vision needs: No Questionnaire PHQ-9 Over the last 2 weeks, how often have you been bothered by any of the following problems? 1. Little interest or pleasure in doing things: several days 2. Feeling down, depressed, or hopeless: more than half the days 3. Trouble falling or staying asleep, or sleeping too much: nearly every day 4. Feeling tired or having little energy: several days 5. Poor appetite or overeating: not at all 6. Feeling bad about yourself - or that you are a failure or have let yourself or your family down: more than half the days 7. Trouble concentrating on things, such as reading the newspaper or watching television: not at all 8. Moving or speaking so slowly that other people could have noticed. Or the opposite - being so fidgety or restless that you have been moving around a lot more than usual: not at all 9. Thoughts that you would be better off or of hurting yourself in some way: not at all Total score: 9 Depression Screening Interpretation: Positive Depression Screening Follow-up: Existing condition, In treatment and Change in Medication Depression Screening Done: Yes 19477 - PHQ-9 Billing: Yes Source: Developed by Drs. Bharat Velasquez, Jena Lynne, Emery Maier and colleagues, with an educational sadie from [employer]. Thrive Questionnaire Date Thrive assessed: 09/28/23 I am a: Patient What is your living situation today?: I have a steady place to live Within the past 12 months, did the food you bought not last and you didn't have the money to get more?: Never true Within the past 12 months, did you worry whether your food would run out before you got money to buy more?: Never true Do you have trouble paying for medicines?: No Do you have trouble getting transportation to medical appointments?: No Do you have trouble paying your heating and electricity bill?: No Do you have trouble taking care of your child, family member or friend?: No Do you have trouble with day-to-day activities such as bathing, preparing meals, shopping, managing finances, etc.?: No Are you currently unemployed and looking for a job?: No Are you interested in more education?: No RIGOBERTO-7 AMB Questionnaire RIGOBERTO-7 Date RIGOBERTO - 7 assessed: 09/28/23 Feeling nervous, anxious, or on edge: 2 = More than half the days Not being able to stop or control worryin = More than half the days Worrying too much about different things: 2 = More than half the days Trouble relaxin = More than half the days Being so restless that it is hard to sit still: 2 = More than half the days Becoming easily annoyed or irritable: 1 = Several days Feeling afraid as if something awful might happen: 0 = Not at all Total RIGOBERTO-7 score (0-4 normal; 5-9 mild; 10-14 moderate; 15-21 severe): 11 Source: Developed by Drs. Bharat Velasquez, Jena Lynne, Emery Maier and colleagues, with an educational sadie from [employer]. RIGOBERTO-7 Assessment Billing RIGOBERTO-7 Assessment Tool: RIGOBERTO-7 Assessment 42855 Review of Systems Const Reports as per HPI ENT Denies dizziness, Denies nasal congestion, Denies nasal discharge and Denies sore throat Card Denies chest pain, Denies lightheadedness, Denies palpitations and Denies dyspnea Resp Denies chest congestion, Denies cough and Denies dyspnea GI Denies abdominal pain, Denies change in bowel habits and Denies heartburn Denies dysuria, Denies urinary frequency and Denies urinary urgency Musc Reports no additional complaints Neuro Denies dizziness Psych Reports no additional complaints Endo Denies polydipsia, Denies polyuria and Denies palpitations Physical exam (Primary Care) Vital Signs: Last Vital Signs Pulse 62 09/28/23 12:02 BP 132/80 09/28/23 12:02 Pulse Ox 97 09/28/23 12:02 Oxygen Delivery Method Room Air 09/28/23 12:02 BMI result Body Mass Index 26.0 Tobacco/Smoking Status: Tobacco use Status Tobacco use date assessed 09/28/23 09/28/23 12:07 Patient Tobacco Use Status Former Tobacco user 09/28/23 12:07 e-Cigarette/Vaping Use Never Used 09/28/23 12:07 PHQ-9: PHQ-9 Score PHQ-9: Total score 9 09/28/23 13:05 Depression Screening Interpretation: Positive Depression Screening Follow-up: Existing condition, In treatment and Change in Medication Thrive Assessment: Date of Thrive Assessment Date Thrive assessed 09/28/23 09/28/23 13:05 Const General: cooperative, healthy appearing and comfortable Orientation/consciousness: patient oriented x3 HENMT Face and sinus: Yes face symmetric Mouth: Normal oral and palatal mucosa present and moist mucous membranes Neck Neck: Yes full ROM, Yes no lymphadenopathy and Yes supple Resp Effort & Inspection: normal respiratory effort and able to speak in complete sentences Auscultation: clear to auscultation bilaterally Cardio Rate: regular rate Rhythm: regular rhythm Heart sounds: S1 normal heart sound present and S2 normal heart sound present GI Inspection: Yes obesity Palpation (GI): Soft to palpation, nontender and no guarding Auscultation: normal bowel sounds Neuro General: patient oriented x3, gait normal, moves all extremities and no focal motor deficits Extrem General: Yes full ROM, Yes no joint enlargement, Yes no pedal edema and Yes normal gait Psych Appearance: grossly normal Mental Status: mental status grossly normal Speech and movement: Normal speech and movement present Affect: normal affect Thought process: Normal thought process present Assessment and Plan Assessment & Plan (1) Anxiety and depression: Code(s): F41.9 - Anxiety disorder, unspecified; F32.A - Depression, unspecified Plan: Will continue on buspirone but dose increased to 10 mg per tablet taken 1 tablet twice a day. Schedule telehealth appointment 4 weeks after adjustment of medication dose Medications: Changed From buspirone 5 mg PO TID 30 days 90 tabs 1RF To buspirone 10 mg PO BID 60 tabs 1RF 30 days Coding Level of Care Code Est Pt Level 3 (42336) Diagnoses Anxiety and depression F41.9; F32.A Additional Codes RIGOBERTO-7 Assessment Billing - RIGOBERTO-7 Assessment Tool: RIGOBERTO-7 Assessment 21753 ([id number])
[2023-09-28 12:02] VITALS: BP 132/80; PULSE 62; O2SAT 97; BMI 26.0
== END 2023-09-28 12:57 | disposition home or self-care (01) ==
PROVIDERS: PCP Internal Medicine; Visit Provider Internal Medicine
DX: F41.9 Anxiety disorder, unspecified (principal); F32.A Depression, unspecified
CPT/HCPCS: 96127; 99213

== ENCOUNTER 2023-09-30 06:57 | Outpatient (REF) | payer OTHER, SELFPAY ==
[2023-09-30 12:06] LABS: Prostate Specific Antigen 2.28 ng/mL (<0.05-4.0)
== END 2023-09-30 06:58 | disposition home or self-care (01) ==
LOC: HO.HMGCLDS 06:57
PROVIDERS: PCP Internal Medicine; Visit Provider Urology
DX: Z12.5 Encounter for screening for malignant neoplasm of prostate (principal); R97.20 Elevated prostate specific antigen [PSA]
CPT/HCPCS: 36415; 84153

== ENCOUNTER 2023-10-06 09:11 | Outpatient (AMB) | payer OTHER, SELFPAY ==
--- NOTE | 2023-10-06 09:16 | MHC.OFFVIS ---
Intake Intake Visit Reasons: 1Y PSA/PVR(set) Intake Note: Patient is Present for Follow Up PSA/PVR Urology Medication: Finasteride Antibiotic Allergies: None Blood Thinners: Aspirin PVR: 38 Compliants: no complaints stable on finasteride Allergies No Known Allergies [No Known Allergies*] Allergy (Verified 10/06/23 09:21) Medication List - Last Reconciled 10/06/23 by Singh Peñaloza MD amlodipine 10 mg PO DAILY aspirin (Enteric Coated Aspirin) 81 mg PO DAILY buspirone 10 mg PO BID 30 days coenzyme Q10 (Co Q-10) 100 mg PO DAILY finasteride 5 mg orally 3x week; hydrochlorothiazide 12.5 mg (1/2 x 25 mg) PO DAILY lisinopril 40 mg PO DAILY multivitamin 1 tab PO DAILY omega 0-bnf-rap-fish oil-krill 700 mg-600 mg- 900 mg (MegaRed Advanced 4-in-1) caps PO pravastatin 40 mg PO BEDTIME HPI HPI Comments History of Present Illness Details He Hanson is a very pleasant male. He is a patient of Dr. Saini. He is seen in the office today for the following urologic conditions. - elevated PSA - lower urinary tract symptoms PVR 40 cc Mild PSA elevation on finasteride Lost his in January. Did have his kids visiting for [employer]. Tries to get out each week to his grandsons ice hockey games. Elevated PSA/Abnormal KANIKA: PSA at low level Had stopped tamsulosin He can cut back on finasteride to 3 times a week Brother has moved to [place] He presents for further evaluation of elevated PSA. Current management is medication with 5AR. Current symptoms minimal nocturia, effective stream, effective emptying Laboratory investigations include a total PSA evaluation 01/18 4.7, 08/20 3.0, 02/19 2.8, 02/20 1.6, 07/24 1.2, 09/24 2.3 Therapeutic plan will be continued surveillance. [facility], [facility] Medical History Mixed dyslipidemia Impaired fasting glucose Pruritus Essential hypertension Benign prostatic hyperplasia Surgical History Status post thoracostomy tube placement Family History Father CAD (coronary artery disease) HTN (hypertension) Myocardial infarction Mother Dementia Brother BPH (benign prostatic hyperplasia) Social History Housing: House Alcohol intake: never Patient Tobacco Use Status: Former Tobacco user Years Smoked: 10 yrs e-Cigarette/Vaping Use: Never Used Current occupational status: retired Cognitive needs: No Hearing needs: No Vision needs: No Office Procedures Post Void Residual Post Residual Void Post Void Residual (PVR): 38 [id number] Void Residual by ultrasound Results AMB Urinalysis, Automated UA Leukoctes 0 Raya/uL Last Edit by EVANGELINA Urias on 10/06/23 09:26 UA Nitrite Negative Last Edit by EVANGELINA Urias on 10/06/23 09:26 UA Urobilinogen 0.2 mg/dL Last Edit by EVANGELINA Urias on 10/06/23 09:26 UA Protein 0 mg/dL Last Edit by EVANGELINA Urias on 10/06/23 09:26 UA pH 7.5 Last Edit by EVANGELINA Urias on 10/06/23 09:26 UA Blood 0 Daniel/uL Last Edit by EVANGELINA Urias on 10/06/23 09:26 UA Specific [place] 1.010 Last Edit by EVANGELINA Urias on 10/06/23 09:26 UA Ketone Negative Last Edit by EVANGELINA Urias on 10/06/23 09:26 UA Bilirubin 0 mg/dL Last Edit by EVANGELINA Urias on 10/06/23 09:26 UA Glucose 0 mg/dL Last Edit by EVANGELINA Urias on 10/06/23 09:26 Results Reviewed Results Reviewed: Laboratory Last Values Urine pH (Auto) 7.5 10/06/23 09:21 Specific [place] (Auto) 1.010 10/06/23 09:21 Urine Protein (Auto) 0 mg/dL 10/06/23 09:21 Glucose (UA)(Auto) 0 mg/dL 10/06/23 09:21 Urine Ketones (Auto) Negative 10/06/23 09:21 Urine Blood (Auto) 0 Daniel/uL 12/05/23 09:21 Urine Nitrite (Auto) Negative 10/06/23 09:21 Urine Bilirubin (Auto) 0 mg/dL 10/06/23 09:21 Urine Urobilinogen (Auto) 0.2 mg/dL 10/06/23 09:21 Leukocyte Esterase (Auto) 0 Raya/uL 10/06/23 09:21 Assessment & Plan Assessment & Plan (1) Benign prostatic hyperplasia: Code(s): N40.0 - Benign prostatic hyperplasia without lower urinary tract symptoms Qualifiers: Lower urinary tract symptom presence: symptoms absent Qualified Code(s): N40.0 - Benign prostatic hyperplasia without lower urinary tract symptoms Plan Twelve month follow-up PSA Orders: Orders Prostate Specific Antigen 364 Days N40.0 - Benign prostatic hyperplasia without lower urinary tract symptoms AMB Urinalysis Automated Today Z13.9 - Encounter for screening, unspecified AMB Post Void Residual by ultrasound Today N40.0 - Benign prostatic hyperplasia without lower urinary tract symptoms Patient Instructions: Imaging studies, laboratory and physical exam results were discussed and reviewed in detail. No major barriers to patient understanding were identified. An opportunity to ask questions regarding the treatment plan was provided. All questions were answered. The patient expressed understanding and agreement with the above treatment plan. The patient is aware they should contact our office by phone for worsening of their current condition or the appearance of new urologic symptoms. Compliance is encouraged with any medications and followup testing that is ordered. It is a privilege to participate in the urologic care of your patient. If you have any questions or concerns regarding treatment for the above conditions, or other urologic issues, please do not hesitate to contact me. The office telephone contact is [phone]. This note is constructed using voice recognition software. While every effort has been made to ensure accuracy customer operations manager errors may have been included. Yours sincerely, Dr Singh Peñaloza MD, [facility] - Urology Providers of Expert, Compassionate Care for the Genitourinary System Coding Level of Care Code Est Pt Level 4 (67441) Diagnoses Benign prostatic hyperplasia without lower urinary tract symptoms N40.0 Lower urinary tract symptom presence: symptoms absent CPT Codes Post Residual Void - PVR CPT Code: 34503-Fxkg Void Residual by ultrasound ([id number])
== END 2023-10-06 10:22 | disposition home or self-care (01) ==
PROVIDERS: Visit Provider Urology
DX: N40.0 Benign prostatic hyperplasia without lower urinary tract symptoms (principal); Z13.9 Encounter for screening, unspecified
CPT/HCPCS: 99214

== ENCOUNTER → 2023-10-06 09:11 | Outpatient (BNVA) | payer OTHER, SELFPAY | PROVIDERS: Visit Provider Urology | DX: N40.0 Benign prostatic hyperplasia without lower urinary tract symptoms (principal) | CPT/HCPCS: 51798; 81003; 99212 ==

== ENCOUNTER 2023-11-09 16:04 | Outpatient (AMB) | payer OTHER, SELFPAY ==
--- NOTE | 2023-11-09 15:29 | MHC.PC.OV ---
Intake Visit Reasons: 4 wk f/u I-phone [phone] Intake Note: pt is following up after starting anxiety medication Allergies No Known Allergies [No Known Allergies*] Allergy (Verified 11/09/23 15:52) Medication List - Last Reconciled 11/09/23 by Dee Dee Kincaid MD amlodipine 10 mg PO DAILY aspirin (Enteric Coated Aspirin) 81 mg PO DAILY buspirone 10 mg PO BID 30 days coenzyme Q10 (Co Q-10) 100 mg PO DAILY finasteride 5 mg orally 3x week; hydrochlorothiazide 12.5 mg (1/2 x 25 mg) PO DAILY lisinopril 40 mg PO DAILY multivitamin 1 tab PO DAILY omega 4-ucm-kyf-fish oil-krill 700 mg-600 mg- 900 mg (MegaRed Advanced 4-in-1) caps PO pravastatin 40 mg PO BEDTIME Tobacco use date assessed: 11/09/23 Fall risk assessment: No Falls in past year Last assessed Fall Risk: 11/09/23 Dental Screening Dental Screen Date: 11/09/23 Did you have a dental visit in the last 12 months?: No Did you have a dental problem in the last 6 months where you did not have access to dental care?: No Was dental information given to patient?: No HPI 4 wk f/u I-phone [phone] HPI Details 73-year-old male with anxiety and depression, currently on buspirone 10 mg taken 1 tablet twice a day, with dose increased on last visit, here today for follow-up via telehealth. Patient states that he does not notice any difference however his friends have been noticing that his mood has been improved since starting the new medication. Patient states that he enjoys being out with family and friends, does not feel depressed or anxious but he gets severe anxiety attacks when he is by himself . He also reports feeling sensation of head fullness which last approximately 15 minutes after taking his buspirone 10 mg dose, but resolves spontaneously otherwise no other and side effects noted with current medication. [facility] Medical History (Updated 11/09/23 @ 16:19 by Dee Dee Kincaid MD) Anxiety and depression Mixed dyslipidemia Impaired fasting glucose Pruritus Essential hypertension Benign prostatic hyperplasia Surgical History Status post thoracostomy tube placement Family History Father CAD (coronary artery disease) HTN (hypertension) Myocardial infarction Mother Dementia Brother BPH (benign prostatic hyperplasia) Social History Housing: House Alcohol intake: never Patient Tobacco Use Status: Former Tobacco user Years Smoked: 10 yrs e-Cigarette/Vaping Use: Never Used Current occupational status: retired Cognitive needs: No Hearing needs: No Vision needs: No Questionnaire PHQ-9 Over the last 2 weeks, how often have you been bothered by any of the following problems? 1. Little interest or pleasure in doing things: not at all 2. Feeling down, depressed, or hopeless: several days 3. Trouble falling or staying asleep, or sleeping too much: several days 4. Feeling tired or having little energy: several days 5. Poor appetite or overeating: several days 6. Feeling bad about yourself - or that you are a failure or have let yourself or your family down: not at all 7. Trouble concentrating on things, such as reading the newspaper or watching television: not at all 8. Moving or speaking so slowly that other people could have noticed. Or the opposite - being so fidgety or restless that you have been moving around a lot more than usual: not at all 9. Thoughts that you would be better off or of hurting yourself in some way: not at all Total score: 4 Depression Screening Interpretation: Positive Depression Screening Follow-up: Existing condition, In treatment and Change in Medication (Buspirone dose decreased to 7.5 mg taken 1 tablet twice a day) Depression Screening Done: Yes 62565 - PHQ-9 Billing: Yes Source: Developed by Drs. Bharat Velasquez, Jena Lynne, Emery Maier and colleagues, with an educational sadie from [employer]. Thrive Questionnaire Date Thrive assessed: 11/09/23 I am a: Patient What is your living situation today?: I have a steady place to live Within the past 12 months, did the food you bought not last and you didn't have the money to get more?: Never true Within the past 12 months, did you worry whether your food would run out before you got money to buy more?: Never true Do you have trouble paying for medicines?: No Do you have trouble getting transportation to medical appointments?: No Do you have trouble paying your heating and electricity bill?: No Do you have trouble taking care of your child, family member or friend?: No Do you have trouble with day-to-day activities such as bathing, preparing meals, shopping, managing finances, etc.?: No Are you currently unemployed and looking for a job?: No Are you interested in more education?: No RIGOBERTO-7 AMB Questionnaire RIGOBERTO-7 Date RIGOBERTO - 7 assessed: 11/09/23 Feeling nervous, anxious, or on edge: 1 = Several days Not being able to stop or control worryin = Several days Worrying too much about different things: 1 = Several days Trouble relaxin = Not at all Being so restless that it is hard to sit still: 0 = Not at all Becoming easily annoyed or irritable: 1 = Several days Feeling afraid as if something awful might happen: 0 = Not at all Total RIGOBERTO-7 score (0-4 normal; 5-9 mild; 10-14 moderate; 15-21 severe): 4 Source: Developed by Drs. Bharat Velasquez, Jena Lynne, Emery Maier and colleagues, with an educational sadie from [employer]. RIGOBERTO-7 Assessment Billing RIGOBERTO-7 Assessment Tool: RIGOBERTO-7 Assessment 17234 Review of Systems Const Denies fatigue and Denies weakness ENT Denies dizziness, Denies nasal congestion, Denies nasal discharge and Denies sore throat Card Denies chest pain, Denies lightheadedness, Denies palpitations and Denies dyspnea Resp Denies chest congestion, Denies cough and Denies dyspnea GI Denies abdominal pain, Denies change in bowel habits and Denies heartburn Denies dysuria, Denies urinary frequency and Denies urinary urgency Musc Reports no additional complaints Neuro Denies dizziness and Denies weakness Psych Reports no additional complaints Endo Denies fatigue, Denies polydipsia, Denies polyuria and Denies palpitations Physical exam (Primary Care) Tobacco/Smoking Status: Tobacco use Status Tobacco use date assessed 11/09/23 11/09/23 15:33 Patient Tobacco Use Status Former Tobacco user 11/09/23 15:33 e-Cigarette/Vaping Use Never Used 11/09/23 15:33 Depression Screening Interpretation: Positive Depression Screening Follow-up: Existing condition, In treatment and Change in Medication (Buspirone dose decreased to 7.5 mg taken 1 tablet twice a day) Thrive Assessment: Date of Thrive Assessment Date Thrive assessed 09/28/23 11/09/23 15:33 Telehealth Telehealth Location of provider rendering services: practice address Location of patient: address on file Patient Identification confirmed using: Name, : Yes Telehealth method: video Patient verbally consented to treatment: Yes Patient verbally consented to billing insurance company: Yes Patient informed of any privacy concerns related to visit: Yes Minutes spent on Phone/Video with Pt.: 15 Assessment and Plan Assessment & Plan (1) Anxiety and depression: Code(s): F41.9 - Anxiety disorder, unspecified; F32.A - Depression, unspecified Plan: Continue on buspirone but dose decreased to 7.5 mg per tablet taken 1 tablet twice a day. Declined referral for therapy. Discussed other ways to relieve stress including : exercise or a massage, Get enough rest, Avoid alcohol, caffeine, nicotine, and illegal drugs which can increase your anxiety level and cause sleep problems. Call in 1-2 weeks if any adverse effects noted on medication, or if no improvement after 4 weeks of taking medication at current dose. Coding Level of Care Code Tele Est Pt Level 3 (28964) Diagnoses Anxiety and depression F41.9; F32.A Additional Codes RIGOBERTO-7 Assessment Billing - RIGOBERTO-7 Assessment Tool: RIGOBERTO-7 Assessment 11483 ([id number])
== END 2023-11-09 16:36 | disposition home or self-care (01) ==
PROVIDERS: PCP Internal Medicine; Visit Provider Internal Medicine
DX: F41.9 Anxiety disorder, unspecified (principal); F32.A Depression, unspecified
CPT/HCPCS: 99213

== ENCOUNTER 2024-02-24 08:07 | Outpatient (REF) | payer OTHER, SELFPAY ==
[2024-02-24 11:03] LABS: Alanine Aminotransferase 18 U/L (0-40); Anion Gap 11 (12-20); Aspartate Amino Transferase 24 U/L (5-37); Blood Urea Nitrogen 18 mg/dL (9-16); Calcium 9.3 mg/dL (8.4-10.2); Carbon Dioxide 26 mmol/L (22-29); Chloride 108 mmol/L (96-108); Cholesterol 208 mg/dL (<200); Estimated Glomerular Filt Rate > 60; Glucose Fasting 92 mg/dL (60-99); HDL Cholesterol 52 mg/dL (>40); LDL Cholesterol Calculated 121 mg/dL (<100); Potassium 4.1 mmol/L (3.3-5.1); Sodium 141 mmol/L (135-145); Triglycerides 177 mg/dL (<150)
== END 2024-02-24 08:08 | disposition home or self-care (01) ==
LOC: HO.HMGCLDS 08:07
PROVIDERS: PCP Internal Medicine; Visit Provider Internal Medicine
DX: F41.9 Anxiety disorder, unspecified (principal); F32.A Depression, unspecified; E78.2 Mixed hyperlipidemia; I10 Essential (primary) hypertension
CPT/HCPCS: 36415; 80048; 80061; 84450; 84460

== ENCOUNTER 2024-03-01 09:51 | Outpatient (AMB) | payer OTHER, SELFPAY ==
--- NOTE | 2024-03-01 10:05 | MHC.PC.OV ---
Vital Signs 03/01/24 10:07 Height 5 ft 10 in Weight 186 lb BMI 26.7 BP 120/70 Blood Pressure Location Rt brachial Position Sitting Pulse 86 Pulse Oximetry (%) 99 Oxygen Delivery Method Room Air Intake Visit Reasons: Annual PE Intake Note: Pt is here today for his PE: Last cologuard 06/02/22 Allergies No Known Allergies [No Known Allergies*] Allergy (Verified 03/01/24 10:57) Medication List - Last Reconciled 03/01/24 by Dee Dee Kincaid MD amlodipine 10 mg PO DAILY aspirin (Enteric Coated Aspirin) 81 mg PO DAILY buspirone 7.5 mg PO BID 30 days coenzyme Q10 (Co Q-10) 100 mg PO DAILY finasteride 5 mg orally 3x week; hydrochlorothiazide 12.5 mg (1/2 x 25 mg) PO DAILY lisinopril 40 mg PO DAILY multivitamin 1 tab PO DAILY omega 8-vwr-chh-fish oil-krill 700 mg-600 mg- 900 mg (MegaRed Advanced 4-in-1) caps PO pravastatin 40 mg PO BEDTIME Tobacco use date assessed: 03/01/24 Fall risk assessment: No Falls in past year Last assessed Fall Risk: 03/01/24 Dental Screening Dental Screen Date: 03/01/24 Did you have a dental visit in the last 12 months?: Yes Did you have a dental problem in the last 6 months where you did not have access to dental care?: Yes Was dental information given to patient?: Patient has dentist HPI Annual PE HPI Details 73-year-old male here today for his physical exam. He has hypertension, currently stable controlled on present treatment, recent fasting labs showed lipids are within normal limits except for elevated triglycerides. Currently taking pravastatin 40 mg at bedtime and [place] 3 fatty acid supplements. However he admits that he has not been exercising much during the winter months. He has been feeling well with no other complaints at present time. He is on buspirone for anxiety depression after the recent passing of his , but would like to stop taking the medication as he states that he has been feeling better, does not feel that he needs to be medication anymore. He is currently sees followed by Urology for benign prostatic hyperplasia, currently on finasteride up-to-date with his colon cancer screening, had a negative Cologuard done in 2021. [facility] Medical History Anxiety and depression Mixed dyslipidemia Impaired fasting glucose Essential hypertension Benign prostatic hyperplasia Surgical History Status post thoracostomy tube placement Family History Father CAD (coronary artery disease) HTN (hypertension) Myocardial infarction Mother Dementia Brother BPH (benign prostatic hyperplasia) Social History Housing: House Alcohol intake: never Patient Tobacco Use Status: Former Tobacco user Years Smoked: 10 yrs e-Cigarette/Vaping Use: Never Used Current occupational status: retired Cognitive needs: No Hearing needs: No Vision needs: Yes Questionnaire PHQ-9 Over the last 2 weeks, how often have you been bothered by any of the following problems? 1. Little interest or pleasure in doing things: not at all 2. Feeling down, depressed, or hopeless: not at all 3. Trouble falling or staying asleep, or sleeping too much: not at all 4. Feeling tired or having little energy: not at all 5. Poor appetite or overeating: not at all 6. Feeling bad about yourself - or that you are a failure or have let yourself or your family down: not at all 7. Trouble concentrating on things, such as reading the newspaper or watching television: not at all 8. Moving or speaking so slowly that other people could have noticed. Or the opposite - being so fidgety or restless that you have been moving around a lot more than usual: not at all 9. Thoughts that you would be better off or of hurting yourself in some way: not at all Total score: 0 Depression Screening Interpretation: Negative Depression Screening Done: Yes 43654 - PHQ-9 Billing: Yes Source: Developed by Drs. Bharat Velasquez, Jena Lynne, Emery Maier and colleagues, with an educational sadie from [employer]. Thrive Questionnaire Date Thrive assessed: 11/09/23 AUDIT C Alcohol Use Questionnaire (AUDIT-C) 1. How often do you have a drink containing alcohol?: Monthly or less 2. How many drinks containing alcohol do you have on a typical day when you are drinking?: 1 or 2 3. How often do you have six or more drinks on one occasion?: Never Total Score: 1 RIGOBERTO-7 AMB Questionnaire RIGOBERTO-7 Date RIGOBERTO - 7 assessed: 03/02/24 Feeling nervous, anxious, or on edge: 0 = Not at all Not being able to stop or control worryin = Not at all Worrying too much about different things: 0 = Not at all Trouble relaxin = Not at all Being so restless that it is hard to sit still: 0 = Not at all Becoming easily annoyed or irritable: 0 = Not at all Feeling afraid as if something awful might happen: 0 = Not at all Total RIGOBERTO-7 score (0-4 normal; 5-9 mild; 10-14 moderate; 15-21 severe): 0 Source: Developed by Drs. Bharat Velasquez, Jena Lynne, Emery Maier and colleagues, with an educational sadie from [employer]. RIGOBERTO-7 Assessment Billing RIGOBERTO-7 Assessment Tool: RIGOBERTO-7 Assessment 27533 Review of Systems Const Denies fatigue and Denies weakness Eyes Reports no additional complaints ENT Denies dizziness, Denies nasal congestion, Denies nasal discharge and Denies sore throat Card Denies chest pain, Denies lightheadedness, Denies palpitations and Denies dyspnea Resp Denies chest congestion, Denies cough and Denies dyspnea GI Denies abdominal pain, Denies change in bowel habits and Denies heartburn Denies dysuria, Denies urinary frequency and Denies urinary urgency Musc Reports no additional complaints Skin/Breast Denies lesions and Denies rash Neuro Denies dizziness and Denies weakness Psych Reports no additional complaints Endo Denies fatigue, Denies polydipsia, Denies polyuria and Denies palpitations Luis/Lymph Reports no additional complaints Aller/Immun Reports no additional complaints Physical exam (Primary Care) Vital Signs: Last Vital Signs Pulse 86 03/01/24 10:07 BP 120/70 03/01/24 10:07 Pulse Ox 99 03/01/24 10:07 Oxygen Delivery Method Room Air 03/01/24 10:07 BMI result Body Mass Index 26.7 Tobacco/Smoking Status: Tobacco use Status Tobacco use date assessed 03/01/24 03/01/24 10:07 Patient Tobacco Use Status Former Tobacco user 03/01/24 10:07 e-Cigarette/Vaping Use Never Used 03/01/24 10:07 Depression Screening Interpretation: Negative Thrive Assessment: Date of Thrive Assessment Date Thrive assessed 11/09/23 03/01/24 10:07 Advance Care Planning discussion: Completed/Scanned Date of discussion: 03/01/24 Who was present: Patient Forms completed: Health Care Proxy and MOLST Time spent: 16-45 minutes Actual minutes spent: 16 Const General: cooperative, healthy appearing and comfortable Orientation/consciousness: patient oriented x3 HENMT Face and sinus: Yes face symmetric Mouth: Normal oral and palatal mucosa present and moist mucous membranes Eyes General: appearance normal, both eyes and all related structures Neck Neck: Yes full ROM, Yes no lymphadenopathy and Yes supple Chest Chest palpation & inspection: normal inspection of the chest and normal palpation of entire chest wall Resp Effort & Inspection: normal respiratory effort and able to speak in complete sentences Auscultation: clear to auscultation bilaterally Cardio Rate: regular rate Rhythm: regular rhythm Heart sounds: S1 normal heart sound present and S2 normal heart sound present GI Inspection: Yes obesity Palpation (GI): Soft to palpation, nontender and no guarding Auscultation: normal bowel sounds General: Yes no CVA tenderness Back/Spine/Pelvis Back: no CVA tenderness and No back tenderness Skin General skin exam: no rashes or lesions noted Neuro General: patient oriented x3, gait normal, moves all extremities and no focal motor deficits Extrem General: Yes full ROM, Yes no joint enlargement, Yes no pedal edema and Yes normal gait Psych Appearance: grossly normal Mental Status: mental status grossly normal Speech and movement: Normal speech and movement present Affect: normal affect Thought process: Normal thought process present Results Reviewed Results Reviewed: Name: He Hanson Age/Sex: 73/M : 1950 Unit#: [id number] Attend Dr: Dee Dee Kincaid MD Re02/24/24 Status: DEP REF Location: [facility] Disch: SPEC : [id number] DAVEY: 02/24/24 STATUS: COMP REQ : [id number] RECD: 02/24/24-[address]: Dee Dee Kincaid MD COMP: 02/24/24-1102 ENTERED: 02/24/24-[address]: ORDERED: Met Prof Fast, AST, ALT, Lipid Panel Test Result Flag Reference Sodium 141 135-145 mmol/L Potassium 4.1 3.3-5.1 mmol/L CL 108 96-108 mmol/L CO2 26 22-29 mmol/L Gap 11 L 12-20 BUN 18 H 9-16 mg/dL Creat 1.14 0.5-1.4 mg/dL EGFR > 60 NOTE: For -Thai individuals, multiply the result by 1.210. Chronic Kidney Disease: Estimated GFR < 60 mL/min/1.73m2 Severe Kidney Disease: Estimated GFR < 15 mL/min/1.73m2 FBS 92 60-99 mg/dL CA 9.3 8.4-10.2 mg/dL AST (GOT) 24 5-37 U/L ALT (GPT) 18 0-40 U/L Triglyceride 177 H <150 mg/dL Desirable Triglyceride: less than 150 mg/dL Borderline High Triglyceride 150-199 mg/dL High Triglyceride: 200-499 mg/dL Very High Triglyceride: greater than or equal to 5OO mg/dL Cholesterol 208 H <200 mg/dL Desirable Cholesterol: less than 200 mg/dL Borderline High Cholesterol: 200-239 mg/dL High Cholesterol: greater than 239 mg/dL LDL Calculated 121 H <100 mg/dL Desirable LDL: less than 100 mg/dL Near Optimal/Above Optimal LDL: 110-129 mg/dL Borderline High LDL: 130-159 mg/dL High LDL: 160-189 mg/dL Very High LDL: greater than or equal to 190 mg/dL HDL 52 >40 mg/dL Desirable HDL: greater than 40 mg/dL Assessment and Plan Assessment & Plan (1) Essential hypertension: Code(s): I10 - Essential (primary) hypertension Plan: Blood pressure within normal limits, continue with amlodipine 10 mg daily and hydrochlorothiazide 12.5 mg in the morning as well as lisinopril 40 mg daily (2) Mixed dyslipidemia: Code(s): E78.2 - Mixed hyperlipidemia Plan: Fasting lipids within normal limits, continued on pravastatin and [place] 3 fatty acid supplements, reinforced importance of following low-cholesterol diet and getting regular exercise. (3) Benign prostatic hyperplasia: Code(s): N40.0 - Benign prostatic hyperplasia without lower urinary tract symptoms Qualifiers: Lower urinary tract symptom presence: symptoms absent Qualified Code(s): N40.0 - Benign prostatic hyperplasia without lower urinary tract symptoms Plan: Currently followed by Urology, currently on finasteride (4) Anxiety and depression: Code(s): F41.9 - Anxiety disorder, unspecified; F32.A - Depression, unspecified Plan: Patient denies further episodes of anxiety depression like to taper off buspirone Orders: Orders Lipid Panel 08/02/24 E78.2 - Mixed hyperlipidemia, I10 - Essential (primary) hypertension Basic Metabolic Panel Fasting 08/02/24 E78.2 - Mixed hyperlipidemia, I10 - Essential (primary) hypertension Alanine Aminotransferase 08/02/24 E78.2 - Mixed hyperlipidemia, I10 - Essential (primary) hypertension Aspartate Amino Transferase 08/02/24 E78.2 - Mixed hyperlipidemia, I10 - Essential (primary) hypertension Medications: Refilled lisinopril 40 mg PO DAILY 90 tabs 4RF amlodipine 10 mg PO DAILY 90 tabs 4RF Discontinued buspirone Discontinued Reason: Patient no longer taking 7.5 mg PO BID 30 days 60 tabs 3RF Coding Level of Care Code Est Pt Prev Care >65y(04205) Diagnoses Essential hypertension I10 Mixed dyslipidemia E78.2 Benign prostatic hyperplasia without lower urinary tract symptoms N40.0 Lower urinary tract symptom presence: symptoms absent Anxiety and depression F41.9; F32.A Additional Codes RIGOBERTO-7 Assessment Billing - RIGOBERTO-7 Assessment Tool: RIGOBERTO-7 Assessment 32438 ([id number]) Vital Signs *Quality* - Advance Care Planning discussion: Completed/Scanned ([id number]) Vital Signs *Quality* - Time spent: 16-45 minutes ([id number])
[2024-03-01 10:07] VITALS: BP 120/70; PULSE 86; O2SAT 99; BMI 26.7
== END 2024-03-01 11:30 | disposition home or self-care (01) ==
PROVIDERS: PCP Internal Medicine; Visit Provider Internal Medicine
DX: Z00.00 Encounter for general adult medical examination without abnormal findings (principal); I10 Essential (primary) hypertension; E78.2 Mixed hyperlipidemia; N40.0 Benign prostatic hyperplasia without lower urinary tract symptoms; F41.9 Anxiety disorder, unspecified; F32.A Depression, unspecified
CPT/HCPCS: 1123F; 99397; 99497

== ENCOUNTER 2024-08-11 09:03 | Outpatient (REF) | payer OTHER, SELFPAY ==
[2024-08-11 10:56] LABS: Alanine Aminotransferase 19 U/L (0-40); Anion Gap 11 (12-20); Aspartate Amino Transferase 22 U/L (5-37); Blood Urea Nitrogen 19 mg/dL (9-16); Calcium 9.2 mg/dL (8.4-10.2); Carbon Dioxide 27 mmol/L (22-29); Chloride 109 mmol/L (96-108); Cholesterol 188 mg/dL (<200); Estimated Glomerular Filt Rate > 60; Glucose Fasting 99 mg/dL (60-99); HDL Cholesterol 58 mg/dL (>40); LDL Cholesterol Calculated 107 mg/dL (<100); Potassium 4.5 mmol/L (3.3-5.1); Sodium 142 mmol/L (135-145); Triglycerides 116 mg/dL (<150)
== END 2024-08-11 09:04 | disposition home or self-care (01) ==
LOC: HO.HMGCLDS 09:03
PROVIDERS: PCP Internal Medicine; Visit Provider Internal Medicine
DX: E78.2 Mixed hyperlipidemia (principal); I10 Essential (primary) hypertension
CPT/HCPCS: 36415; 80048; 80061; 84450; 84460

== ENCOUNTER 2024-08-15 09:00 | Outpatient (AMB) | payer OTHER, SELFPAY ==
[2024-08-15 09:53] VITALS: BP 142/76; PULSE 72; O2SAT 100; BMI 26.1
--- NOTE | 2024-08-15 09:53 | MHC.PC.OV ---
Vital Signs 08/15/24 09:53 08/15/24 10:12 Height 5 ft 10 in Weight 182 lb BMI 26.1 BP 142/76 H 135/80 Blood Pressure Location Rt brachial Rt brachial Position Sitting Sitting Pulse 72 Pulse Source Pulse Oximeter Pulse Oximetry (%) 100 Oxygen Delivery Method Room Air Intake Visit Reasons: Follow-up hypertension lipids after fasting labs Intake Note: Pt is here today for his f/u HTN, ;lipids and labs Allergies No Known Allergies [No Known Allergies*] Allergy (Verified 08/15/24 10:07) Medication List - Last Reconciled 08/15/24 by Dee Dee Kincaid MD amlodipine 10 mg PO DAILY aspirin (Enteric Coated Aspirin) 81 mg PO DAILY coenzyme Q10 (Co Q-10) 100 mg PO DAILY finasteride 5 mg orally 3x week; hydrochlorothiazide 12.5 mg (1/2 x 25 mg) PO DAILY lisinopril 40 mg PO DAILY multivitamin 1 tab PO DAILY omega 7-jlx-gcv-fish oil-krill 700 mg-600 mg- 900 mg (MegaRed Advanced 4-in-1) caps PO pravastatin 40 mg PO BEDTIME Tobacco use date assessed: 08/15/24 Fall risk assessment: No Falls in past year Last assessed Fall Risk: 08/15/24 Dental Screening Dental Screen Date: 08/15/24 Did you have a dental visit in the last 12 months?: Yes Did you have a dental problem in the last 6 months where you did not have access to dental care?: Yes Was dental information given to patient?: Patient has dentist HPI Follow-up hypertension lipids after fasting labs HPI Details 74-year-old male with hypertension and dyslipidemia, here today for follow-up. He had recent fasting labs done which showed renal function, fasting glucose, liver enzymes and fasting lipid panel are within normal limits. Has been compliant with taking his medications, but admits to not getting any regular exercise lately. COUNT INCLUDES THE [facility] Medical History Anxiety and depression Mixed dyslipidemia Impaired fasting glucose Essential hypertension Benign prostatic hyperplasia Surgical History Status post thoracostomy tube placement Family History Father CAD (coronary artery disease) HTN (hypertension) Myocardial infarction Mother Dementia Brother BPH (benign prostatic hyperplasia) Social History Housing: House Alcohol intake: never Patient Tobacco Use Status: Former Tobacco user Years Smoked: 10 yrs e-Cigarette/Vaping Use: Never Used Current occupational status: retired Cognitive needs: No Hearing needs: No Vision needs: Yes Questionnaire PHQ-9 Over the last 2 weeks, how often have you been bothered by any of the following problems? 1. Little interest or pleasure in doing things: not at all 2. Feeling down, depressed, or hopeless: not at all 3. Trouble falling or staying asleep, or sleeping too much: not at all 4. Feeling tired or having little energy: not at all 5. Poor appetite or overeating: not at all 6. Feeling bad about yourself - or that you are a failure or have let yourself or your family down: not at all 7. Trouble concentrating on things, such as reading the newspaper or watching television: not at all 8. Moving or speaking so slowly that other people could have noticed. Or the opposite - being so fidgety or restless that you have been moving around a lot more than usual: not at all 9. Thoughts that you would be better off or of hurting yourself in some way: not at all Total score: 0 Depression Screening Interpretation: Negative Depression Screening Done: Yes 98160 - PHQ-9 Billing: Yes Source: Developed by Drs. Bharat Velasquez, Jena Lynne, Emery Maier and colleagues, with an educational sadie from [employer]. Thrive Questionnaire Date Thrive assessed: 08/15/24 I am a: Patient What is your living situation today?: I have a steady place to live Within the past 12 months, did the food you bought not last and you didn't have the money to get more?: Never true Within the past 12 months, did you worry whether your food would run out before you got money to buy more?: Never true Do you have trouble paying for medicines?: No Do you have trouble getting transportation to medical appointments?: No Do you have trouble paying your heating and electricity bill?: No Do you have trouble taking care of your child, family member or friend?: I choose not to answer this question Do you have trouble with day-to-day activities such as bathing, preparing meals, shopping, managing finances, etc.?: No Are you interested in more education?: No Please select the resources that you would like help with: None Currently or been in a relationship where the following occur: No concerns reported THRIVE Score: 0 AUDIT C Alcohol Use Questionnaire (AUDIT-C) 1. How often do you have a drink containing alcohol?: Never 3. How often do you have six or more drinks on one occasion?: Never Total Score: 0 RIGOBERTO-7 AMB Questionnaire RIGOBERTO-7 Date RIGOBERTO - 7 assessed: 08/15/24 Feeling nervous, anxious, or on edge: 0 = Not at all Not being able to stop or control worryin = Not at all Worrying too much about different things: 0 = Not at all Trouble relaxin = Not at all Being so restless that it is hard to sit still: 0 = Not at all Becoming easily annoyed or irritable: 0 = Not at all Feeling afraid as if something awful might happen: 0 = Not at all Total RIGOBERTO-7 score (0-4 normal; 5-9 mild; 10-14 moderate; 15-21 severe): 0 Source: Developed by Drs. Bharat Velasquez, Jena Lynne, Emery Maier and colleagues, with an educational sadie from [employer]. RIGOBERTO-7 Assessment Billing RIGOBERTO-7 Assessment Tool: RIGOBERTO-7 Assessment 10472 Review of Systems Const Denies fatigue, Denies weakness and Reports weight loss Eyes Reports no additional complaints ENT Denies dizziness, Denies nasal congestion, Denies nasal discharge and Denies sore throat Card Denies chest pain, Denies lightheadedness, Denies palpitations and Denies dyspnea Resp Denies chest congestion, Denies cough and Denies dyspnea GI Denies abdominal pain, Denies change in bowel habits and Denies heartburn Denies dysuria, Denies urinary frequency and Denies urinary urgency Musc Reports no additional complaints Skin/Breast Denies lesions and Denies rash Neuro Denies dizziness and Denies weakness Psych Reports no additional complaints Endo Denies fatigue, Denies polydipsia, Denies polyuria and Denies palpitations Luis/Lymph Reports no additional complaints Aller/Immun Reports no additional complaints Physical exam (Primary Care) Vital Signs: Last Vital Signs Pulse 72 08/15/24 09:53 BP 135/80 08/15/24 10:12 Pulse Ox 100 08/15/24 09:53 Oxygen Delivery Method Room Air 08/15/24 09:53 BMI result Body Mass Index 26.1 Tobacco/Smoking Status: Tobacco use Status Tobacco use date assessed 08/15/24 08/15/24 09:56 Patient Tobacco Use Status Former Tobacco user 08/15/24 09:56 e-Cigarette/Vaping Use Never Used 08/15/24 09:56 PHQ-9: PHQ-9 Score PHQ-9: Total score 0 08/15/24 10:21 Depression Screening Interpretation: Negative Thrive Assessment: Date of Thrive Assessment Date Thrive assessed 08/15/24 08/15/24 09:56 Currently or been in a relationship where the following occur: No concerns reported Const General: cooperative, healthy appearing and comfortable Orientation/consciousness: patient oriented x3 HENMT Face and sinus: Yes face symmetric Mouth: Normal oral and palatal mucosa present and moist mucous membranes Eyes General: appearance normal, both eyes and all related structures Neck Neck: Yes full ROM, Yes no lymphadenopathy and Yes supple Resp Effort & Inspection: normal respiratory effort and able to speak in complete sentences Auscultation: clear to auscultation bilaterally Cardio Rate: regular rate Rhythm: regular rhythm Heart sounds: S1 normal heart sound present and S2 normal heart sound present GI Inspection: Yes obesity Palpation (GI): Soft to palpation, nontender and no guarding Auscultation: normal bowel sounds General: Yes no CVA tenderness Back/Spine/Pelvis Back: no CVA tenderness and No back tenderness Neuro General: patient oriented x3, gait normal, moves all extremities and no focal motor deficits Extrem General: Yes full ROM, Yes no joint enlargement, Yes no pedal edema and Yes normal gait Results Reviewed Results Reviewed: Name: He Hanson Age/Sex: 74/M : 1950 Unit#: [id number] Attend Dr: Dee Dee Kincaid MD Re08/11/24 Status: DEP REF Location: [facility] Disch: SPEC : [id number] DAVEY: 08/11/24 STATUS: COMP REQ : [id number] RECD: 08/11/[address] [facility] [address]: Dee Dee Kincaid MD COMP: 08/11/24 ENTERED: 08/11/[address] [facility] [address]: ORDERED: Met Prof Fast, AST, ALT, Lipid Panel Test Result Flag Reference Sodium 142 135-145 mmol/L Potassium 4.5 3.3-5.1 mmol/L CL 109 H 96-108 mmol/L CO2 27 22-29 mmol/L Gap 11 L 12-20 BUN 19 H 9-16 mg/dL Creat 1.15 0.5-1.4 mg/dL EGFR > 60 NOTE: For -[place] individuals, multiply the result by 1.210. Chronic Kidney Disease: Estimated GFR < 60 mL/min/1.73m2 Severe Kidney Disease: Estimated GFR < 15 mL/min/1.73m2 FBS 99 60-99 mg/dL CA 9.2 8.4-10.2 mg/dL AST (GOT) 22 5-37 U/L ALT (GPT) 19 0-40 U/L Triglyceride 116 <150 mg/dL Desirable Triglyceride: less than 150 mg/dL Borderline High Triglyceride 150-199 mg/dL High Triglyceride: 200-499 mg/dL Very High Triglyceride: greater than or equal to 5OO mg/dL Cholesterol 188 <200 mg/dL Desirable Cholesterol: less than 200 mg/dL Borderline High Cholesterol: 200-239 mg/dL High Cholesterol: greater than 239 mg/dL LDL Calculated 107 H <100 mg/dL Desirable LDL: less than 100 mg/dL Near Optimal/Above Optimal LDL: 110-129 mg/dL Borderline High LDL: 130-159 mg/dL High LDL: 160-189 mg/dL Very High LDL: greater than or equal to 190 mg/dL HDL 58 >40 mg/dL Desirable HDL: greater than 40 mg/dL Note: This HDL assay may give artificially low results in patients with liver disease. Coding Level of Care Code Est Pt Level 4 (58293) Complex EM visit Add On G2211 Diagnoses Essential hypertension I10 Mixed dyslipidemia E78.2 Additional Codes RIGOBERTO-7 Assessment Billing - RIGOBERTO-7 Assessment Tool: RIGOBERTO-7 Assessment 53840 ([id number]) Assessment & Plan Assessment & Plan (1) Essential hypertension: Code(s): I10 - Essential (primary) hypertension Category: Medical Plan: Continue with lisinopril 40 mg daily and hydrochlorothiazide 12.5 mg in the morning with amlodipine 10 mg daily (2) Mixed dyslipidemia: Code(s): E78.2 - Mixed hyperlipidemia Category: Medical Plan: Recent fasting lipids are within normal limits, continued on pravastatin 40 mg at bedtime and Butler 3 fatty acid supplements. Reinforced importance of following a low-cholesterol diet and getting regular exercise. Orders: Orders Complete Blood Count Auto Diff 03/02/25 E78.2 - Mixed hyperlipidemia, I10 - Essential (primary) hypertension, Z86.2 - Personal history of diseases of the blood and blood-forming organs and certain disorders involving the immune mechanism, Z86.39 - Personal history of other endocrine, nutritional and metabolic disease Lipid Panel 03/02/25 E78.2 - Mixed hyperlipidemia, I10 - Essential (primary) hypertension, Z86.2 - Personal history of diseases of the blood and blood-forming organs and certain disorders involving the immune mechanism, Z86.39 - Personal history of other endocrine, nutritional and metabolic disease Vitamin D 25-OH Total 03/02/25 E78.2 - Mixed hyperlipidemia, I10 - Essential (primary) hypertension, Z86.2 - Personal history of diseases of the blood and blood-forming organs and certain disorders involving the immune mechanism, Z86.39 - Personal history of other endocrine, nutritional and metabolic disease Alanine Aminotransferase 03/02/25 E78.2 - Mixed hyperlipidemia, I10 - Essential (primary) hypertension, Z86.2 - Personal history of diseases of the blood and blood-forming organs and certain disorders involving the immune mechanism, Z86.39 - Personal history of other endocrine, nutritional and metabolic disease Aspartate Amino Transferase 03/02/25 E78.2 - Mixed hyperlipidemia, I10 - Essential (primary) hypertension, Z86.2 - Personal history of diseases of the blood and blood-forming organs and certain disorders involving the immune mechanism, Z86.39 - Personal history of other endocrine, nutritional and metabolic disease Basic Metabolic Panel Fasting 03/02/25 E78.2 - Mixed hyperlipidemia, I10 - Essential (primary) hypertension, Z86.2 - Personal history of diseases of the blood and blood-forming organs and certain disorders involving the immune mechanism, Z86.39 - Personal history of other endocrine, nutritional and metabolic disease
[2024-08-15 10:12] VITALS: BP 135/80
== END 2024-08-15 10:44 | disposition home or self-care (01) ==
PROVIDERS: PCP Internal Medicine; Visit Provider Internal Medicine
DX: I10 Essential (primary) hypertension (principal); E78.2 Mixed hyperlipidemia

== ENCOUNTER → 2024-08-15 09:00 | Outpatient (BNVA) | payer OTHER, SELFPAY | PROVIDERS: PCP Internal Medicine; Visit Provider Internal Medicine | DX: I10 Essential (primary) hypertension (principal); E78.2 Mixed hyperlipidemia | CPT/HCPCS: 96127; 99212 ==

== ENCOUNTER 2024-10-05 07:10 | Outpatient (REF) | payer OTHER, SELFPAY ==
[2024-10-05 11:10] LABS: Prostate Specific Antigen 1.53 ng/mL (<0.05-4.0)
== END 2024-10-05 07:11 | disposition home or self-care (01) ==
LOC: HO.HMGCLDS 07:10
PROVIDERS: PCP Internal Medicine; Visit Provider Urology
DX: N40.0 Benign prostatic hyperplasia without lower urinary tract symptoms (principal); Z12.5 Encounter for screening for malignant neoplasm of prostate
CPT/HCPCS: 36415; 84153

== ENCOUNTER 2024-10-06 09:24 | Outpatient (AMB) | payer OTHER, SELFPAY ==
--- NOTE | 2024-10-06 09:24 | A.OFFVIS_ITS ---
Intake Visit Reasons: 1y/PSA Intake Note: Patient is Present for 1Y Follow Up PSA Urology Medication: Finasteride Antibiotic Allergies: None Blood Thinners: Aspirin Director Of Sales Marketing Required: No Allergies No Known Allergies [No Known Allergies*] Allergy (Verified 10/06/24 09:24) HPI Comments Details: He Hanson is a very pleasant male. He is a patient of Dr. Saini. He is seen in the office today for the following urologic conditions. - elevated PSA - lower urinary tract symptoms Telemedicine Evaluation 15 min Consultation [employer] Yearly follow-up Mild PSA elevation on finasteride - 10/25 1.5 Lost his in 2022. Tries to get out each week to his grandsons [employer] games. Continue yearly follow-up Elevated PSA/Abnormal KANIKA: PSA at low level Had stopped tamsulosin He can cut back on finasteride to 3 times a week Brother has moved to [place] He presents for further evaluation of elevated PSA. Current management is medication with 5AR. Current symptoms minimal nocturia, effective stream, effective emptying Laboratory investigations include a total PSA evaluation 01/18 4.7, 08/20 3.0, 02/19 2.8, 02/20 1.6, 07/24 1.2, 09/24 2.3 Therapeutic plan will be continued surveillance. [facility] Medical History Anxiety and depression Mixed dyslipidemia Impaired fasting glucose Essential hypertension Benign prostatic hyperplasia Surgical History Status post thoracostomy tube placement Family History Father CAD (coronary artery disease) HTN (hypertension) Myocardial infarction Mother Dementia Brother BPH (benign prostatic hyperplasia) Social History Housing: House Alcohol intake: never Patient Tobacco Use Status: Former Tobacco user Years Smoked: 10 yrs e-Cigarette/Vaping Use: Never Used Current occupational status: retired Cognitive needs: No Hearing needs: No Vision needs: Yes Review of Systems Const All systems reviewed & are unremarkable except as noted in HPI and below Reports no additional complaints Resp Reports no additional complaints GI Reports no additional complaints Reports as per HPI Musc Reports no additional complaints Physical Exam Telemedicine evaluation Appropriate responses Regular breathing rate and rhythm HEENT Head: Yes normal to inspection Ears: hearing grossly normal bilaterally Eyes General: appearance normal, both eyes and all related structures Neck Neck: Yes normal visual inspection Chest Chest palpation & inspection: normal inspection of the chest Resp Effort & Inspection: normal respiratory effort and able to speak in complete sentences Telehealth Telehealth Telehealth Platform: [employer] Location of provider rendering services: practice address Location of patient: address on file Patient Identification confirmed using: Name, : Yes Telehealth method: video Patient verbally consented to treatment: Yes Patient verbally consented to billing insurance company: Yes Patient informed of any privacy concerns related to visit: Yes Minutes spent on Phone/Video with Pt.: 15 Assessment & Plan Assessment & Plan (1) Benign prostatic hyperplasia: Code(s): N40.0 - Benign prostatic hyperplasia without lower urinary tract symptoms Category: Medical Qualifiers: Lower urinary tract symptom presence: symptoms absent Qualified Code(s): N40.0 - Benign prostatic hyperplasia without lower urinary tract sympt oms Plan Twelve month follow-up PSA Orders: Orders Prostate Specific Antigen 364 Days N40.0 - Benign prostatic hyperplasia without lower urinary tract symptoms Patient Instructions: Imaging studies, laboratory and physical exam results were discussed and reviewed in detail. No major barriers to patient understanding were identified. An opportunity to ask questions regarding the treatment plan was provided. All questions were answered. The patient expressed understanding and agreement with the above treatment plan. The patient is aware they should contact our office by phone for worsening of their current condition or the appearance of new urologic symptoms. Compliance is encouraged with any medications and followup testing that is ordered. It is a privilege to participate in the urologic care of your patient. If you have any questions or concerns regarding treatment for the above conditions, or other urologic issues, please do not hesitate to contact me. The office telephone contact is [phone]. This note is constructed using voice recognition software. While every effort has been made to ensure accuracy developer relations manager errors may have been included. Yours sincerely, Dr Singh Peñaloza MD, [facility] - Urology Providers of Expert, Compassionate Care for the Genitourinary System Coding Level of Care Code Tele Est Pt Level 4 (38348) Diagnoses Benign prostatic hyperplasia without lower urinary tract symptoms N40.0 Lower urinary tract symptom presence: symptoms absent
== END 2024-10-06 13:42 | disposition home or self-care (01) ==
LOC: HO.HUSH 09:24
PROVIDERS: PCP Internal Medicine; Visit Provider Urology
DX: N40.0 Benign prostatic hyperplasia without lower urinary tract symptoms (principal)
CPT/HCPCS: 99214

== ENCOUNTER 2025-03-06 08:09 | Outpatient (AMB) | payer OTHER, SELFPAY ==
[2025-03-06 08:49] VITALS: BP 130/90; PULSE 87; TEMP 37.1; O2SAT 97
--- NOTE | 2025-03-06 08:49 | MHC.OFFWIV ---
Intake Vital Signs 03/06/25 08:49 Weight 189 lb BP 130/90 H Blood Pressure Location Lt brachial Position Sitting Pulse 87 Pulse Source Pulse Oximeter Temp 98.8 F Temp Source Oral Pulse Oximetry (%) 97 Oxygen Delivery Method Room Air Intake Visit Reasons: EP fever & covid symptoms & tested + for Covid Intake Note: Patient here for because he tested positive for covid last night. Patient Tobacco Use Status: Former Tobacco user Allergies No Known Allergies [No Known Allergies*] Allergy (Verified 03/06/25 08:55) Do you need a note to return to daycare/school/sports/work: No HPI HPI Comments History of Present Illness Details 74 y/o Male patient who presents to the walk in clinic with c/o Fevers, body chills, Headaches and Fatigue since Last night. He took a Home Covid Test last night, and was positive for COVID-19. He has been taking Advil with good relief. [facility] Medical History (Updated 03/06/25 @ 09:17 by Aleta Silva NP) Cough Acute respiratory disease Anxiety and depression Mixed dyslipidemia Impaired fasting glucose Essential hypertension Benign prostatic hyperplasia Surgical History Status post thoracostomy tube placement Family History Father CAD (coronary artery disease) HTN (hypertension) Myocardial infarction Mother Dementia Brother BPH (benign prostatic hyperplasia) Social History Housing: House Alcohol intake: never Patient Tobacco Use Status: Former Tobacco user Years Smoked: 10 yrs e-Cigarette/Vaping Use: Never Used Current occupational status: retired Cognitive needs: No Hearing needs: No Vision needs: Yes Review of Systems Const All systems reviewed & are unremarkable except as noted in HPI and below Physical Exam Vital Signs: Last Vital Signs Temp 98.8 F 03/06/25 08:49 Pulse 87 03/06/25 08:49 BP 130/90 H 03/06/25 08:49 Pulse Ox 97 03/06/25 08:49 Oxygen Delivery Method Room Air 03/06/25 08:49 Const General: no acute distress; No comfortable Nutritional Appearance: well nourished Orientation/consciousness: patient oriented x3 HEENT Head: Yes normocephalic Ears: external ears normal and TM abnormal bulging and with fluid behind the TM bilateral General nose exam: Normal external nose present Face and sinus: Yes sinuses nontender Mouth: moist mucous membranes and Abnormal oral and palatal mucosa present erythematous Throat: Yes uvula midline and Yes abnormal tonsil (Enlarged tonsils +2) Resp Effort & Inspection: normal respiratory effort Auscultation: clear to auscultation bilaterally, no crackles, no rales, no rhonchi and no wheezes Cardio Rhythm: regular rhythm Heart sounds: S1 normal heart sound present and S2 normal heart sound present Neuro General: patient oriented x3 Assessment & Plan Assessment & Plan (1) Acute respiratory disease: Code(s): J06.9 - Acute upper respiratory infection, unspecified Plan: Ordered SARs. Home Test positive for COVID-19 Advised 5 days of Isolation. Rest and hydrate well with warm fluids. Acetaminophen for fever and body aches. OTC cough remedies. Orders: Orders SARS-CoV2/FLU/RSV Today J06.9 - Acute upper respiratory infection, unspecified Medications: New dextromethorphan polistirex ER (Delsy 12 hour) 10 mL PO Q12H 89 mL 0RF cough J06.9 - Acute upper respiratory infection, unspecified benzonatate 200 mg (2 x 100 mg) PO BID 60 caps 0RF R05.9 - Cough, unspecified Coding Level of Care Code Est Pt Level 4 (62322) Diagnoses Acute respiratory disease J06.9 Time Spent (min) 20
== END 2025-03-06 09:27 | disposition home or self-care (01) ==
PROVIDERS: PCP Internal Medicine; Visit Provider Nurse Practitioner Family
DX: J06.9 Acute upper respiratory infection, unspecified (principal)

== ENCOUNTER 2025-03-06 08:09 | Outpatient (REF) | payer OTHER, SELFPAY ==
[2025-03-06 13:08] LABS: Influenza A PCR NEGATIVE (Negative); Influenza B PCR NEGATIVE (Negative); Resp Syncy Virus RNA Qual PCR NEGATIVE (Negative); SARS COV2 PCR INHOUSE POSITIVE (Negative)
== END 2025-03-06 08:10 | disposition home or self-care (01) ==
LOC: HO.LAB 08:09
PROVIDERS: Nurse Practitioner Family; PCP Internal Medicine
DX: J06.9 Acute upper respiratory infection, unspecified (principal)
CPT/HCPCS: 0241U; 99212

== ENCOUNTER 2025-03-23 08:03 | Outpatient (REF) | payer OTHER, SELFPAY ==
[2025-03-23 10:16] LABS: MANUAL DIFF FLAG NO
[2025-03-23 10:23] LABS: Basophils Absolute Auto 0.1 X10*3/uL (0.0-0.2); Basophils Percent Auto 1.2 % (0-2); Eosinophils Absolute Auto 0.3 X10*3/uL (0.0-0.4); Eosinophils Percent Auto 5.1 % (0-4); Hematocrit 41.1 % (42.0-52.0); Imm Gran Abs Auto 0.02 X10*3/uL (0.00-0.03); Imm Gran Pct Auto 0.3 % (0.0-0.4); Lymphocytes Absolute Auto 2.2 X10*3/uL (1.2-4.9); Lymphocytes Percent Auto 33.6 % (20-40); Mean Corpuscular HGB Conc 34.1 g/dl (31.0-36.0); Mean Corpuscular Hemoglobin 30.7 pg (27.0-33.0); Mean Corpuscular Volume 90.1 fL (80.0-98.0); Mean Platelet Volume 10.3 fL (9.4-12.4); Monocytes Absolute Auto 0.5 X10*3/uL (0.1-1.2); Neutrophils Absolute Auto 3.4 x10*3/uL (2.0-8.3); Neutrophils Percent Auto 51.8 % (45-73); Platelet Count 310 X10*3/uL (160-400); Red Blood Count 4.56 X10*6/uL (4.60-5.80); Red Cell Distribution Width 12.3 % (11.0-16.0); White Blood Count 6.5 X10*3/uL (4.8-10.8)
[2025-03-23 11:06] LABS: Alanine Aminotransferase 20 U/L (0-40); Anion Gap 13 (12-20); Aspartate Amino Transferase 29 U/L (5-37); Blood Urea Nitrogen 15 mg/dL (9-16); Carbon Dioxide 25 mmol/L (22-29); Chloride 108 mmol/L (96-108); Cholesterol 223 mg/dL (<200); Estimated Glomerular Filt Rate > 60; Glucose Fasting 93 mg/dL (60-99); HDL Cholesterol 47 mg/dL (>40); LDL Cholesterol Calculated 133 mg/dL (<100); Potassium 4.1 mmol/L (3.3-5.1); Sodium 142 mmol/L (135-145); Triglycerides 219 mg/dL (<150)
[2025-03-23 11:35] LABS: Vitamin D 25-OH Total 73.4 ng/mL (>30)
== END 2025-03-23 08:04 | disposition home or self-care (01) ==
LOC: HO.HMGCLDS 08:03
PROVIDERS: PCP Internal Medicine; Visit Provider Internal Medicine
DX: E78.2 Mixed hyperlipidemia (principal); I10 Essential (primary) hypertension; Z86.2 Personal history of diseases of the blood and blood-forming organs and certain disorders involving the immune mechanism; Z86.39 Personal history of other endocrine, nutritional and metabolic disease
CPT/HCPCS: 36415; 80048; 80061; 82306; 84450; 84460; 85025

== ENCOUNTER 2025-03-29 09:44 | Outpatient (AMB) | payer OTHER, SELFPAY ==
--- NOTE | 2025-03-29 10:13 | A.OFFPC_ITS ---
Vital Signs 03/29/25 10:18 03/29/25 11:05 Weight 184 lb 8 oz BP 140/88 H 130/85 Blood Pressure Location Rt brachial Lt brachial Position Sitting Sitting Respiration 16 Pulse 79 Pulse Source Pulse Oximeter Temp 97.8 F Temp Source Oral Pulse Oximetry (%) 96 Oxygen Delivery Method Room Air Intake Visit Reasons: PE Intake Note: Pt is here today for his PE: Last cologuard 06/02/22 Allergies No Known Allergies [No Known Allergies*] Allergy (Verified 03/29/25 10:59) Medication List - Last Reconciled 03/29/25 by Dee Dee Kincaid MD amlodipine 10 mg PO DAILY aspirin (Enteric Coated Aspirin) 81 mg PO DAILY coenzyme Q10 (Co Q-10) 100 mg PO DAILY finasteride 5 mg orally 3x week; hydrochlorothiazide 12.5 mg (1/2 x 25 mg) PO DAILY lisinopril 40 mg PO DAILY multivitamin 1 tab PO DAILY omega 7-juc-wua-fish oil-krill 700 mg-600 mg- 900 mg (TeradiciRed Advanced 4-in-1) caps PO pravastatin 40 mg PO BEDTIME Tobacco use date assessed: 03/29/25 Fall risk assessment: No Falls in past year Last assessed Fall Risk: 03/29/25 Dental Screening Dental Screen Date: 03/29/25 Did you have a dental visit in the last 12 months?: Yes Did you have a dental problem in the last 6 months where you did not have access to dental care?: No Was dental information given to patient?: Patient has dentist HPI PE HPI Details 74-year-old male with history of hyperte nsion, dyslipidemia, anxiety /depression, benign prostatic hyperplasia, here today for his physical exam. - He has Hyslipidemia , on pravastatin 4 0 mg for years, with a recent fasting lipids showed elevated triglycerides and LDL cholesterol. - He has experienced muscle pain with ot her statins, which influenced the choice of pravastatin. - The patient experiences stiffness in l ower back upon waking up, improving with continued activity, suggestive of osteoarthritis. - He is monitored for small cataracts an d a pterygium in the right eye, which have not yet interfered with vision. - The patient noted significant changes in lifestyle and weight following the of his two years ago. - He has a history of hypertension, with previous medication changes due to interactions. -he had Cologuard testing done in 2021 w [facility] came back negative findings, due again this year [facility] Medical History (Updated 04/02/25 @ 23:40 by Dee Dee Kincaid MD) Cough Acute respiratory disease Anxiety and depression Mixed dyslipidemia Impaired fasting glucose Essential hypertension Benign prostatic hyperplasia Surgical History Status post thoracostomy tube placement Family History Father CAD (coronary artery disease) HTN (hypertension) Myocardial infarction Mother Dementia Brother BPH (benign prostatic hyperplasia) Social History Housing: House Alcohol intake: never Patient Tobacco Use Status: Former Tobacco user Years Smoked: 10 yrs e-Cigarette/Vaping Use: Never Used Current occupational status: retired Cognitive needs: No Hearing needs: No Vision needs: Yes Questionnaire PHQ-9 Over the last 2 weeks, how often have you been bothered by any of the following problems? 1. Little interest or pleasure in doing things: not at all 2. Feeling down, depressed, or hopeless: not at all 3. Trouble falling or staying asleep, or sleeping too much: not at all 4. Feeling tired or having little energy: not at all 5. Poor appetite or overeating: not at all 6. Feeling bad about yourself - or that you are a failure or have let yourself or your family down: not at all 7. Trouble concentrating on things, such as reading the newspaper or watching t elevision: not at all 8. Moving or speaking so slowly that other people could have noticed. Or the opposite - being so fidgety or restless that you have been moving around a lot more than usual: not at all 9. Thoughts that you would be better off or of hurting yourself in some way: not at all Total score: 0 Depression Screening Interpretation: Negative Depression Screening Done: Yes 00258 - PHQ-9 Billing: Yes Source: Developed by Drs. Bharat Velasquez, Jena Lynne, Emery Maier and colleagues, with an educational sadie from [employer]. Thrive Questionnaire Date Thrive assessed: 03/29/25 I am a: Patient What is your living situation today?: I have a steady place to live Within the past 12 months, did the food you bought not last and you didn't have the money to get more?: Never true Within the past 12 months, did you worry whether your food would run out before you got money to buy more?: Never true Do you have trouble paying for medicines?: No Do you have trouble getting transportation to medical appointments?: No Do you have trouble paying your heating and electricity bill?: No Do you have trouble taking care of your child, family member or friend?: No Do you have trouble with day-to-day activities such as bathing, preparing meals, shopping, managing finances, etc.?: No Are you currently unemployed and looking for a job?: No Are you interested in more education?: No Please select the resources that you would like help with: None Currently or been in a relationship where the following occur: No concerns reported THRIVE Score: 0 AUDIT C Alcohol Use Questionnaire (AUDIT-C) 1. How often do you have a drink containing alcohol?: Never Total Score: 0 RIGOBERTO-7 AMB Questionnaire RIGOBERTO-7 Date RIGOBERTO - 7 assessed: 03/29/25 Feeling nervous, anxious, or on edge: 0 = Not at all Not being able to stop or control worryin = Not at all Worrying too much about different things: 0 = Not at all Trouble relaxin = Not at all Being so restless that it is hard to sit still: 0 = Not at all Becoming easily annoyed or irritable: 0 = Not at all Feeling afraid as if something awful might happen: 0 = Not at all Total RIGOBERTO-7 score (0-4 normal; 5-9 mild; 10-14 moderate; 15-21 severe): 0 Source: Developed by Drs. Bharat Velasquez, Jena Lynne, Emery Maier and colleagues, with an educational sadie from [employer]. RIGOBERTO-7 Assessment Billing RIGOBERTO-7 Assessment Tool: RIGOBERTO-7 Assessment 41791 Review of Systems Const Denies fatigue, Denies weakness and Reports weight loss Eyes Details: Positive pterygium right eye, sees Dr. Gianfranco Adams Reports no additional complaints ENT Denies dizziness, Denies nasal congestion, Denies nasal discharge and Denies sore throat Card Denies chest pain, Denies lightheadedness, Denies palpitations and Denies dyspnea Resp Denies chest congestion, Denies cough and Denies dyspnea GI Denies abdominal pain, Denies change in bowel habits and Denies heartburn Denies dysuria, Denies urinary frequency and Denies urinary urgency Musc Reports no additional complaints Skin/Breast Denies lesions and Denies rash Neuro Denies dizziness and Denies weakness Psych Reports no additional complaints Endo Denies fatigue, Denies polydipsia, Denies polyuria and Denies palpitations Luis/Lymph Reports no additional complaints Aller/Immun Reports no additional complaints Physical exam (Primary Care) Vital Signs: Last Vital Signs Temp 97.8 F 03/29/25 10:18 Pulse 79 03/29/25 10:18 Resp 16 03/29/25 10:18 BP 130/85 03/29/25 11:05 Pulse Ox 96 03/29/25 10:18 Oxygen Delivery Method Room Air 03/29/25 10:18 Tobacco/Smoking Status: Tobacco use Status Tobacco use date assessed 03/29/25 03/29/25 10:25 Patient Tobacco Use Status Former Tobacco user 03/29/25 10:25 e-Cigarette/Vaping Use Never Used 03/29/25 10:25 PHQ-9: PHQ-9 Score PHQ-9: Total score 0 03/29/25 23:58 Depression Screening Interpretation: Negative Thrive Assessment: Date of Thrive Assessment Date Thrive assessed 03/29/25 03/29/25 10:32 Currently or been in a relationship where the following occur: No concerns reported Const General: cooperative, healthy appearing and comfortable Orientation/consciousness: patient oriented x3 HENMT Face and sinus: Yes face symmetric Mouth: Normal oral and palatal mucosa present and moist mucous membranes Eyes General: appearance normal, both eyes and all related structures Neck Neck: Yes full ROM, Yes no lymphadenopathy and Yes supple Resp Effort & Inspection: normal respiratory effort and able to speak in complete sentences Auscultation: clear to auscultation bilaterally Cardio Rate: regular rate Rhythm: regular rhythm Heart sounds: S1 normal heart sound present and S2 normal heart sound present GI Inspection: Yes obesity Palpation (GI): Soft to palpation, nontender and no guarding Auscultation: normal bowel sounds General: Yes no CVA tenderness Back/Spine/Pelvis Back: no CVA tenderness and No back tenderness Skin General skin exam: no rashes or lesions noted Neuro General: patient oriented x3, gait normal, moves all extremities and no focal motor deficits Extrem General: Yes full ROM, Yes no joint enlargement, Yes no pedal edema and Yes normal gait Psych Appearance: grossly normal and well kempt Mental Status: mental status grossly normal Speech and movement: Normal speech and movement present Affect: normal affect Results Reviewed Results Reviewed: Name: He Hanson Age/Sex: 74/M : 1950 Unit#: [id number] Attend Dr: Dee Dee Kincaid MD Re03/23/25 Status: DEP REF Location: [facility] Disch: SPEC : [id number] DAVEY: 03/23/25 STATUS: COMP REQ : [id number] RECD: 03/23/[address]: Dee Dee Kincaid MD COMP: 03/23/25 ENTERED: 03/23/[address]: ORDERED: Met Prof Fast, AST, ALT, Lipid Panel, Vitamin D 25-OH Test Result Flag Reference Sodium 142 135-145 mmol/L Potassium 4.1 3.3-5.1 mmol/L CL 108 96-108 mmol/L CO2 25 22-29 mmol/L Gap 13 12-20 BUN 15 9-16 mg/dL Creat 1.12 0.5-1.4 mg/dL eGFR > 60 Chronic Kidney Disease: Estimated GFR < 60 mL/min/1.73m2 Severe Kidney Disease: Estimated GFR < 15 mL/min/1.73m2 FBS 93 60-99 mg/dL CA 9.0 8.4-10.2 mg/dL AST (GOT) 29 5-37 U/L ALT (GPT) 20 0-40 U/L Triglyceride 219 H <150 mg/dL Desirable Triglyceride: less than 150 mg/dL Borderline High Triglyceride 150-199 mg/dL High Triglyceride: 200-499 mg/dL Very High Triglyceride: greater than or equal to 5OO mg/dL Cholesterol 223 H <200 mg/dL Desirable Cholesterol: less than 200 mg/dL Borderline High Cholesterol: 200-239 mg/dL High Cholesterol: greater than 239 mg/dL LDL Calculated 133 H <100 mg/dL Desirable LDL: less than 100 mg/dL Near Optimal/Above Optimal LDL: 110-129 mg/dL Borderline High LDL: 130-159 mg/dL High LDL: 160-189 mg/dL Very High LDL: greater than or equal to 190 mg/dL HDL 47 >40 mg/dL Desirable HDL: greater than 40 mg/dL Note: This HDL assay may give artificially low results in patients with liver disease. Vitamin D 25-OH 73.4 >30 ng/mL Health Based Reference Values* < 20 ng/mL Deficient 20-30 ng/mL Insufficient > 30 ng/mL Sufficient Coding Level of Care Code Est Pt Prev Care >65y(63680) Diagnoses Annual visit for general adult medical examination with abnormal findings Z00.01 Mixed dyslipidemia E78.2 Essential hypertension I10 Benign prostatic hyperplasia without lower urinary tract symptoms N40.0 Lower urinary tract symptom presence: symptoms absent Additional Codes RIGOBERTO-7 Assessment Billing - RIGOBERTO-7 Assessment Tool: RIGOBERTO-7 Assessment 34343 ([id number]) PHQ-9 - 52929 - PHQ-9 Billing: Yes ([id number]) Assessment & Plan Assessment & Plan (1) Annual visit for general adult medical examination with abnormal findings: Code(s): Z00.01 - Encounter for general adult medical examination with abnormal findings Plan: Fasting lab results reviewed with patient. Due for Cologuard testing this year, ordered. Up-to-date with his vaccines (2) Mixed dyslipidemia: Code(s): E78.2 - Mixed hyperlipidemia Category: Medical Plan: Increase pravastatin dose to 80 mg at bedtime, in addition to adherence to healthy habits and regular exercise. Repeat another fasting lipid panel in 3 months (3) Essential hypertension: Code(s): I10 - Essential (primary) hypertension Category: Medical Plan: Blood pressure at goal of less than 130/80. Continue with current medication. Reinforced importance of following a low sodium diet, getting regular exercise, and lowering stress levels. (4) Benign prostatic hyperplasia: Code(s): N40.0 - Benign prostatic hyperplasia without lower urinary tract symptoms Category: Medical Qualifiers: Lower urinary tract symptom presence: symptoms absent Qualified Code(s): N40.0 - Benign prostatic hyperplasia without lower urinary tract symptoms Plan: Continue finasteride Orders: Orders Lipid Panel 06/24/25 E78.2 - Mixed hyperlipidemia Alanine Aminotransferase 06/24/25 E78.2 - Mixed hyperlipidemia Aspartate Amino Transferase 06/24/25 E78.2 - Mixed hyperlipidemia Referrals Cologuard Test Z12.11 - Encounter for screening for malignant neoplasm of colon, Z12.12 - Encounter for screening for malignant neoplasm of rectum Medications: Changed From pravastatin 40 mg PO BEDTIME 90 tabs 1RF E78.2 - Mixed hyperlipidemia To pravastatin 80 mg PO BEDTIME 90 tabs 4RF E78.2 - Mixed hyperlipidemia
[2025-03-29 10:18] VITALS: BP 140/88; PULSE 79; RESP 16; TEMP 36.6; O2SAT 96
[2025-03-29 11:05] VITALS: BP 130/85
== END 2025-03-29 11:26 | disposition home or self-care (01) ==
LOC: HO.HMCC 09:45
PROVIDERS: PCP Internal Medicine; Visit Provider Internal Medicine
DX: Z00.01 Encounter for general adult medical examination with abnormal findings (principal); E78.2 Mixed hyperlipidemia; I10 Essential (primary) hypertension; N40.0 Benign prostatic hyperplasia without lower urinary tract symptoms

== ENCOUNTER → 2025-03-29 09:44 | Outpatient (BNVA) | payer OTHER, SELFPAY | PROVIDERS: PCP Internal Medicine; Visit Provider Internal Medicine | DX: Z00.01 Encounter for general adult medical examination with abnormal findings (principal); E78.2 Mixed hyperlipidemia; I10 Essential (primary) hypertension; N40.0 Benign prostatic hyperplasia without lower urinary tract symptoms; Z79.899 Other long term (current) drug therapy; Z13.31 Encounter for screening for depression; Z13.30 Encounter for screening examination for mental health and behavioral disorders, unspecified | CPT/HCPCS: 96127 ==

== ENCOUNTER 2025-06-23 08:28 | Outpatient (AMB) | payer OTHER, SELFPAY ==
--- NOTE | 2025-06-23 08:26 | A.OFFPC_ITS ---
Intake Visit Reasons: discuss med. Intake Note: Pt is having telehealth visit today to discuss depression medication Allergies No Known Allergies (No Known Allergies*) Allergy (Verified 06/23/25 08:40) Medication List - Last Reconciled 06/23/25 by Dee Dee Kincaid MD amlodipine 10 mg PO DAILY aspirin (Enteric Coated Aspirin) 81 mg PO DAILY coenzyme Q10 (Co Q-10) 100 mg PO DAILY finasteride 5 mg orally 3x week; hydrochlorothiazide 12.5 mg (1/2 x 25 mg) PO DAILY lisinopril 40 mg PO DAILY multivitamin 1 tab PO DAILY omega 3-dim-csl-fish oil-krill 700 mg-600 mg- 900 mg (MegaRed Advanced 4-in-1) caps PO pravastatin 80 mg PO BEDTIME Tobacco use date assessed: 06/23/25 Fall risk assessment: No Falls in past year Last assessed Fall Risk: 06/23/25 Dental Screening Dental Screen Date: 06/23/25 Did you have a dental visit in the last 12 months?: Yes Did you have a dental problem in the last 6 months where you did not have access to dental care?: Yes Was dental information given to patient?: Patient has dentist HPI discuss med. HPI Details - The patient is a 75-year-old male pres enting with symptoms of depression. - He reports experiencing little interes t or pleasure in activities he usually enjoys, nearly every day for the past several months ever since his . 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 - The patient has trouble falling asleep due to racing thoughts about trivial matters, although he does not lose sleep over these thoughts. - He reports feeling tired and having li ttle energy almost every day. - He denies poor appetite or overeating and maintains a balanced diet. - He feels lonely but does not consider himself a failure. - He denies trouble concentrating on tas ks such as reading or watching TV. - He denies thoughts of self-harm or fee ling better off . - The patient has a history of taking bu spirone without benefit and has been off it for a while. - He has not been on any other medicatio ns for depression and has not felt this way since his 's passing two and a half years ago. - He engages in regular physical activit y, walking three and a half miles every morning, which he finds therapeutic. - He has a supportive relationship with a retired nurse practitioner friend, with whom he shares experiences of losing their spouses. Has friends but has difficulty connecting with them. [facility] Medical History (Updated 06/23/25 @ 09:02 by Dee Dee Kincaid MD) Depression Mixed dyslipidemia Impaired fasting glucose Essential hypertension Benign prostatic hyperplasia Surgical History Status post thoracostomy tube placement Family History Father CAD (coronary artery disease) HTN (hypertension) Myocardial infarction Mother Dementia Brother BPH (benign prostatic hyperplasia) Social History Housing: House Alcohol intake: never Patient Tobacco Use Status: Former Tobacco user Years Smoked: 10 yrs e-Cigarette/Vaping Use: Never Used Current occupational status: retired Cognitive needs: No Hearing needs: No Vision needs: Yes Questionnaire PHQ-9 Over the last 2 weeks, how often have you been bothered by any of the following problems? 1. Little interest or pleasure in doing things: nearly every day 2. Feeling down, depressed, or hopeless: nearly every day 3. Trouble falling or staying asleep, or sleeping too much: several days 4. Feeling tired or having little energy: nearly every day 5. Poor appetite or overeating: not at all 6. Feeling bad about yourself - or that you are a failure or have let yourself or your family down: not at all 7. Trouble concentrating on things, such as reading the newspaper or watching television: not at all 8. Moving or speaking so slowly that other people could have noticed. Or the opposite - being so fidgety or restless that you have been moving around a lot more than usual: not at all 9. Thoughts that you would be better off or of hurting yourself in some way: not at all Total score: 10 Depression Screening Interpretation: Positive (Started on sertraline 50 mg once a day, declines therapy) Depression Screening Follow-up: Existing condition, New Medication prescribed and Follow-up Visit Requested (Follow-up in 4 weeks after starting medication) Depression Screening Done: Yes Source: Developed by Drs. Bharat Velasquez, Emery David and colleagues, with an educational sadie from [employer]. Thrive Questionnaire Date Thrive assessed: 03/29/25 I am a: Patient What is your living situation today?: I have a steady place to live Within the past 12 months, did the food you bought not last and you didn't have the money to get more?: Never true Within the past 12 months, did you worry whether your food would run out before you got money to buy more?: Never true Do you have trouble paying for medicines?: No Do you have trouble getting transportation to medical appointments?: No Do you have trouble paying your heating and electricity bill?: No Do you have trouble taking care of your child, family member or friend?: No Do you have trouble with day-to-day activities such as bathing, preparing meals, shopping, managing finances, etc.?: No Are you currently unemployed and looking for a job?: No Are you interested in more education?: No Please select the resources that you would like help with: None Currently or been in a relationship where the following occur: No concerns reported THRIVE Score: 0 AUDIT C Alcohol Use Questionnaire (AUDIT-C) 3. How often do you have six or more drinks on one occasion?: Never Total Score: 0 RIGOBERTO-7 AMB Questionnaire RIGOBERTO-7 Date RIGOBERTO - 7 assessed: 03/29/25 Source: Developed by Drs. Bharat Velasquez, Emery David and colleagues, with an educational sadie from [employer]. Review of Systems Const Denies fatigue and Denies weakness Eyes Details: Positive pterygium right eye, sees Dr. Gianfranco Adams Reports no additional complaints ENT Denies dizziness, Denies nasal congestion, Denies nasal discharge and Denies sore throat Card Denies chest pain, Denies lightheadedness, Denies palpitations and Denies dyspnea Resp Denies chest congestion, Denies cough and Denies dyspnea GI Denies abdominal pain, Denies change in bowel habits and Denies heartburn Denies dysuria, Denies urinary frequency and Denies urinary urgency Musc Reports no additional complaints Skin/Breast Denies lesions and Denies rash Neuro Denies dizziness and Denies weakness Psych Reports as per HPI Endo Denies fatigue, Denies polydipsia, Denies polyuria and Denies palpitations Luis/Lymph Reports no additional complaints Aller/Immun Reports no additional complaints Physical exam (Primary Care) Tobacco/Smoking Status: Tobacco use Status Tobacco use date assessed 06/23/25 06/23/25 08:28 Patient Tobacco Use Status Former Tobacco user 06/23/25 08:28 e-Cigarette/Vaping Use Never Used 06/23/25 08:28 Depression Screening Interpretation: Positive (Started on sertraline 50 mg once a day, declines therapy) Depression Screening Follow-up: Existing condition, New Medication prescribed and Follow-up Visit Requested (Follow-up in 4 weeks after starting medication) Thrive Assessment: Date of Thrive Assessment Date Thrive assessed 03/29/25 06/23/25 08:28 Currently or been in a relationship where the following occur: No concerns reported Psych Appearance: grossly normal and well kempt Mental Status: mental status grossly normal Speech and movement: Normal speech and movement present Affect: Sad affect present Telehealth Telehealth Telehealth Platform: [employer] Location of provider rendering services: practice address Location of patient: address on file Patient Identification confirmed using: Name, : Yes Telehealth method: video Patient verbally consented to treatment: Yes Patient verbally consented to billing insurance company: Yes Patient informed of any privacy concerns related to visit: Yes Minutes spent on Phone/Video with Pt.: 15 Coding Level of Care Code Tele Est Pt Level 4 (47145) Diagnoses Moderate episode of recurrent major depressive disorder F33.1 Depression Type: major depressive disorder Major depression recurrence: recurrent Active/Remission status: currently active Major depression episode severity: moderate Time Spent (min) 20 Assessment & Plan Assessment & Plan (1) Depression: Code(s): F32.A - Depression, unspecified Category: Medical Qualifiers: Depression Type: major depressive disorder Major depression recurrence: recurrent Active/Remission status: currently active Major depression episode severity: moderate Qualified Code(s): F33.1 - Major depressive disorder, recurrent, moderate Plan: The patient will be started on sertraline 50 mg once daily, with an initial dose of half a tablet for the first week to assess tolerance. If well-tolerated, the dose will be increased to a full tablet in the second week. The patient is advised that the medication may take two to three weeks to reach its full effect. Follow-up is scheduled in four weeks to evaluate the response to the medication and adjust the treatment plan as necessary. The patient declines therapy at this time but is encouraged to engage in social activities and maintain regular physical exercise. Patient was informed and verbally consented to the use of an ambient scribe for clinic note documentation during this visit.
== END 2025-06-23 15:17 | disposition home or self-care (01) ==
LOC: HO.HMCC 08:28
PROVIDERS: PCP Internal Medicine; Visit Provider Internal Medicine
DX: F33.1 Major depressive disorder, recurrent, moderate (principal)

== ENCOUNTER 2025-07-21 08:40 | Outpatient (AMB) | payer OTHER, SELFPAY ==
--- NOTE | 2025-07-21 08:37 | A.OFFPC_ITS ---
Intake Visit Reasons: 4 week follow up depression Intake Note: Pt is having a telehealth visit for his 4weeks f/u depression Allergies No Known Allergies (No Known Allergies*) Allergy (Verified 07/21/25 08:50) Medication List - Last Reconciled 07/21/25 by Dee Dee Kincaid MD amlodipine 10 mg PO DAILY aspirin (Enteric Coated Aspirin) 81 mg PO DAILY coenzyme Q10 (Co Q-10) 100 mg PO DAILY finasteride 5 mg orally 3x week; hydrochlorothiazide 12.5 mg (1/2 x 25 mg) PO DAILY lisinopril 40 mg PO DAILY multivitamin 1 tab PO DAILY omega 9-yrz-ham-fish oil-krill 700 mg-600 mg- 900 mg (MegaRed Advanced 4-in-1) caps PO pravastatin 80 mg PO BEDTIME sertraline 50 mg PO DAILY Tobacco use date assessed: 07/21/25 Fall risk assessment: No Falls in past year Last assessed Fall Risk: 07/21/25 Dental Screening Dental Screen Date: 07/21/25 Did you have a dental visit in the last 12 months?: Yes Did you have a dental problem in the last 6 months where you did not have access to dental care?: Yes Was dental information given to patient?: Patient has dentist HPI 4 week follow up depression HPI Details 75-year-old gentleman, here today for fo llow-up on his depression, was started on sertraline 50 mg once a day on the last visit approximately 3-1/2 weeks ago and has noticed improvement in his mood, less sad, has more energy and no anhedonia. Denies any side effects from taking the medication. He also reports some aching in his thigh muscles when he gets up from a sitting position, dissipates after he starts moving around. Patient wonders if this is from the higher dose of pravastatin that was increased from 40-80 mg on the last visit. REPLACED BY [facility] Medical History Depression Mixed dyslipidemia Impaired fasting glucose Essential hypertension Benign prostatic hyperplasia Surgical History Status post thoracostomy tube placement Family History Father CAD (coronary artery disease) HTN (hypertension) Myocardial infarction Mother Dementia Brother BPH (benign prostatic hyperplasia) Social History Housing: House Alcohol intake: never Patient Tobacco Use Status: Former Tobacco user Years Smoked: 10 yrs e-Cigarette/Vaping Use: Never Used Current occupational status: retired Cognitive needs: No Hearing needs: No Vision needs: Yes Questionnaire PHQ-9 Over the last 2 weeks, how often have you been bothered by any of the following problems? 1. Little interest or pleasure in doing things: not at all 2. Feeling down, depressed, or hopeless: not at all 3. Trouble falling or staying asleep, or sleeping too much: several days 4. Feeling tired or having little energy: not at all 5. Poor appetite or overeating: not at all 6. Feeling bad about yourself - or that you are a failure or have let yourself or your family down: not at all 7. Trouble concentrating on things, such as reading the newspaper or watching television: not at all 8. Moving or speaking so slowly that other people could have noticed. Or the opposite - being so fidgety or restless that you have been moving around a lot more than usual: not at all 9. Thoughts that you would be better off or of hurting yourself in some way: not at all Total score: 1 Depression Screening Interpretation: Positive (Better since starting sertraline 50 mg once a day, declines therapy) Depression Screening Follow-up: Existing condition, In treatment and Follow-up Visit Requested (Follow-up in 4 weeks after starting medication) Depression Screening Done: Yes 15756 - PHQ-9 Billing: Yes Source: Developed by Drs. Bharat Velasquez, Jena Lynne, Emery Maier and colleagues, with an educational sadie from [employer]. Thrive Questionnaire Date Thrive assessed: 03/29/25 AUDIT C Alcohol Use Questionnaire (AUDIT-C) 3. How often do you have six or more drinks on one occasion?: Never Total Score: 0 RIGOBERTO-7 AMB Questionnaire RIGOBERTO-7 Date RIGOBERTO - 7 assessed: 03/29/25 Feeling nervous, anxious, or on edge: 0 = Not at all Not being able to stop or control worryin = Not at all Worrying too much about different things: 0 = Not at all Trouble relaxin = Not at all Being so restless that it is hard to sit still: 0 = Not at all Becoming easily annoyed or irritable: 0 = Not at all Feeling afraid as if something awful might happen: 0 = Not at all Total RIGOBERTO-7 score (0-4 normal; 5-9 mild; 10-14 moderate; 15-21 severe): 0 Source: Developed by Drs. Bharat Velasquez, Jena Lynne, Emery Maier and colleagues, with an educational sadie from [employer]. Review of Systems Const Denies fatigue and Denies weakness ENT Denies dizziness, Denies nasal congestion and Denies nasal discharge Card Denies chest pain, Denies lightheadedness, Denies palpitations and Denies dyspnea Resp Denies chest congestion, Denies cough and Denies dyspnea GI Denies abdominal pain, Denies change in bowel habits and Denies heartburn Denies dysuria, Denies urinary frequency and Denies urinary urgency Musc Reports no additional complaints Skin/Breast Denies lesions and Denies rash Neuro Denies dizziness and Denies weakness Psych Reports as per HPI Endo Denies fatigue, Denies polydipsia, Denies polyuria and Denies palpitations Luis/Lymph Reports no additional complaints Aller/Immun Reports no additional complaints Physical exam (Primary Care) Tobacco/Smoking Status: Tobacco use Status Tobacco use date assessed 07/21/25 07/21/25 08:39 Patient Tobacco Use Status Former Tobacco user 07/21/25 08:39 e-Cigarette/Vaping Use Never Used 07/21/25 08:39 PHQ-9: PHQ-9 Score PHQ-9: Total score 4 07/21/25 08:39 Depression Screening Interpretation: Positive (Better since starting sertraline 50 mg once a day, declines therapy) Depression Screening Follow-up: Existing condition, In treatment and Follow-up Visit Requested (Follow-up in 4 weeks after starting medication) Thrive Assessment: Date of Thrive Assessment Date Thrive assessed 03/29/25 07/21/25 08:39 Telehealth Telehealth Telehealth Platform: [facility] Location of provider rendering services: practice address Location of patient: address on file Patient Identification confirmed using: Name, : Yes Telehealth method: video Patient verbally consented to treatment: Yes Patient verbally consented to billing insurance company: Yes Patient informed of any privacy concerns related to visit: Yes Minutes spent on Phone/Video with Pt.: 15 Coding Level of Care Code Tele Est Pt Level 4 (37014) Diagnoses Moderate episode of recurrent major depressive disorder F33.1 Depression Type: major depressive disorder Major depression recurrence: recurrent Active/Remission status: currently active Major depression episode severity: moderate Mixed dyslipidemia E78.2 Myalgia M79.10 Additional Codes PHQ-9 - 69643 - PHQ-9 Billing: Yes ([id number]) Assessment & Plan Assessment & Plan (1) Depression: Code(s): F32.A - Depression, unspecified Category: Medical Qualifiers: Depression Type: major depressive disorder Major depression recurrence: recurrent Active/Remission status: currently active Major depression episode severity: moderate Qualified Code(s): F33.1 - Major depressive disorder, recurrent, moderate Plan: Continue sertraline at same dose, declines therapy will see him back for follow- up on 07/31 (2) Mixed dyslipidemia: Code(s): E78.2 - Mixed hyperlipidemia Category: Medical Plan: Currently on pravastatin mg at bedtime and [place] 3 fatty acid supplements 2. Will check a repeat fasting lipid panel and total CK level (3) Myalgia: Code(s): M79.10 - Myalgia, unspecified site Category: Medical Plan: Advised to hold off on taking pravastatin to see if myalgia resolves, will see him back for follow-up on 07/31/2025 Orders: Orders Creatine Kinase Total Today M79.10 - Myalgia, unspecified site
== END 2025-07-21 09:59 | disposition home or self-care (01) ==
LOC: HO.HMCC 08:40
PROVIDERS: PCP Internal Medicine; Visit Provider Internal Medicine
DX: E78.2 Mixed hyperlipidemia (principal); F33.1 Major depressive disorder, recurrent, moderate; M79.10 Myalgia, unspecified site

== ENCOUNTER → 2025-07-21 08:40 | Outpatient (BNVA) | payer OTHER, SELFPAY | PROVIDERS: PCP Internal Medicine; Visit Provider Internal Medicine | DX: F33.1 Major depressive disorder, recurrent, moderate (principal); E78.2 Mixed hyperlipidemia; M79.10 Myalgia, unspecified site | CPT/HCPCS: 96127 ==

== ENCOUNTER 2025-07-22 08:09 | Outpatient (REF) | payer OTHER, SELFPAY ==
[2025-07-22 11:39] LABS: Alanine Aminotransferase 24 U/L (0-40); Aspartate Amino Transferase 37 U/L (5-37); Cholesterol 223 mg/dL (<200); HDL Cholesterol 51 mg/dL (>40); Triglycerides 173 mg/dL (<150)
== END 2025-07-22 08:10 | disposition home or self-care (01) ==
LOC: HO.HMGCLDS 08:09
PROVIDERS: PCP Internal Medicine; Visit Provider Internal Medicine
DX: E78.2 Mixed hyperlipidemia (principal); M79.10 Myalgia, unspecified site
CPT/HCPCS: 36415; 80061; 82550; 84450; 84460

== ENCOUNTER 2025-07-31 07:57 | Outpatient (AMB) | payer OTHER, SELFPAY ==
[2025-07-31 08:08] VITALS: BP 138/84; PULSE 73; O2SAT 97; BMI 28.6
--- NOTE | 2025-07-31 08:08 | A.OFFPC_ITS ---
Vital Signs 07/31/25 08:08 Height 5 ft 10 in Weight 199 lb 6 oz BMI 28.6 BP 138/84 Blood Pressure Location Rt brachial Position Sitting Pulse 73 Pulse Source Pulse Oximeter Pulse Oximetry (%) 97 Oxygen Delivery Method Room Air Intake Visit Reasons: 4m f/u Allergies No Known Allergies (No Known Allergies*) Allergy (Verified 07/31/25 08:43) Medication List - Last Reconciled 07/31/25 by Dee Dee Kincaid MD amlodipine 10 mg PO DAILY aspirin (Enteric Coated Aspirin) 81 mg PO DAILY coenzyme Q10 (Co Q-10) 100 mg PO DAILY finasteride 5 mg orally 3x week; hydrochlorothiazide 12.5 mg (1/2 x 25 mg) PO DAILY lisinopril 40 mg PO DAILY multivitamin 1 tab PO DAILY omega 4-uvj-lrg-fish oil-krill 700 mg-600 mg- 900 mg (MegaRed Advanced 4-in-1) caps PO pravastatin 80 mg PO BEDTIME sertraline 50 mg PO DAILY Tobacco use date assessed: 07/21/25 Fall risk assessment: No Falls in past year Last assessed Fall Risk: 07/31/25 Dental Screening Dental Screen Date: 07/21/25 HPI 4m f/u HPI Details 75 year-old male with history of hyperte nsion, dyslipidemia, anxiety /depression, benign prostatic hyperplasia, here today for his follow-up visit. Latest fasting labs showed improvement in his triglycerides, currently on [place] 3 fatty acid supplements, but LDL cholesterol still is above range unchanged from last check. At that time that this labs were done he is he was on pravastatin 80 mg daily has now cut down to 40 mg once a day. He states that he has not changed his diet, but has cut back on his walking due to pain in his left knee joint. Has been experiencing sharp pain in his left knee when he gets up after sitting for prolonged period of time or when he goes up stairs. It usually resolves after moving around, and has been applying diclofenac gel affording only temporary relief. Blood pressure stable controlled on amlodipine 10 mg taken once a day together with lisinopril 40 mg daily and hydrochlorothiazide 25 mg once a day. Depression stable and controlled on sertraline, needs a 90 day prescription sent to [facility] pharmacy [facility] Medical History Depression Mixed dyslipidemia Impaired fasting glucose Essential hypertension Benign prostatic hyperplasia Surgical History Status post thoracostomy tube placement Family History Father CAD (coronary artery disease) HTN (hypertension) Myocardial infarction Mother Dementia Brother BPH (benign prostatic hyperplasia) Social History Housing: House Alcohol intake: never Patient Tobacco Use Status: Former Tobacco user Years Smoked: 10 yrs e-Cigarette/Vaping Use: Never Used Current occupational status: retired Cognitive needs: No Hearing needs: No Vision needs: Yes Questionnaire PHQ-9 Over the last 2 weeks, how often have you been bothered by any of the following problems? 1. Little interest or pleasure in doing things: not at all 2. Feeling down, depressed, or hopeless: not at all 3. Trouble falling or staying asleep, or sleeping too much: several days 4. Feeling tired or having little energy: not at all 5. Poor appetite or overeating: not at all 6. Feeling bad about yourself - or that you are a failure or have let yourself or your family down: not at all 7. Trouble concentrating on things, such as reading the newspaper or watching television: not at all 8. Moving or speaking so slowly that other people could have noticed. Or the opposite - being so fidgety or restless that you have been moving around a lot more than usual: not at all 9. Thoughts that you would be better off or of hurting yourself in some way: not at all Total score: 1 Depression Screening Interpretation: Positive (Better since starting sertraline 50 mg once a day, declines therapy) Depression Screening Follow-up: Existing condition, In treatment and Follow-up Visit Requested (Follow-up in 4 weeks after starting medication) Depression Screening Done: Yes 50327 - PHQ-9 Billing: Yes Source: Developed by Drs. Bharat Velasquez, Jena Lynne, Emery Maier and colleagues, with an educational sadie from [employer]. Thrive Questionnaire Date Thrive assessed: 03/29/25 I am a: Patient What is your living situation today?: I have a steady place to live Within the past 12 months, did the food you bought not last and you didn't have the money to get more?: Never true Within the past 12 months, did you worry whether your food would run out before you got money to buy more?: Never true Do you have trouble paying for medicines?: No Do you have trouble getting transportation to medical appointments?: No Do you have trouble paying your heating and electricity bill?: No Do you have trouble taking care of your child, family member or friend?: No Do you have trouble with day-to-day activities such as bathing, preparing meals, shopping, managing finances, etc.?: No Are you currently unemployed and looking for a job?: No Are you interested in more education?: No Please select the resources that you would like help with: None Currently or been in a relationship where the following occur: No concerns reported THRIVE Score: 0 AUDIT C Alcohol Use Questionnaire (AUDIT-C) 1. How often do you have a drink containing alcohol?: Never 3. How often do you have six or more drinks on one occasion?: Never Total Score: 0 Score Reviewed/Action Taken: Yes RIGOBERTO-7 AMB Questionnaire RIGOBERTO-7 Date RIGOBERTO - 7 assessed: 03/29/25 Feeling nervous, anxious, or on edge: 0 = Not at all Not being able to stop or control worryin = Not at all Worrying too much about different things: 0 = Not at all Trouble relaxin = Not at all Being so restless that it is hard to sit still: 0 = Not at all Becoming easily annoyed or irritable: 0 = Not at all Feeling afraid as if something awful might happen: 0 = Not at all Total RIGOBERTO-7 score (0-4 normal; 5-9 mild; 10-14 moderate; 15-21 severe): 0 Source: Developed by Drs. Bharat Velasquez, Jena Lynne, Emery Maier and colleagues, with an educational sadie from [employer]. Review of Systems Const Denies fatigue and Denies weakness ENT Denies dizziness, Denies nasal congestion and Denies nasal discharge Card Denies chest pain, Denies lightheadedness, Denies palpitations and Denies dyspnea Resp Denies chest congestion, Denies cough and Denies dyspnea GI Denies abdominal pain, Denies change in bowel habits and Denies heartburn Denies dysuria, Denies urinary frequency and Denies urinary urgency Musc Reports as per HPI Skin/Breast Denies lesions and Denies rash Neuro Denies dizziness and Denies weakness Psych Reports as per HPI Endo Denies fatigue, Denies polydipsia, Denies polyuria and Denies palpitations Luis/Lymph Reports no additional complaints Aller/Immun Reports no additional complaints Physical exam (Primary Care) Vital Signs: Last Vital Signs Pulse 73 07/31/25 08:08 BP 138/84 07/31/25 08:08 Pulse Ox 97 07/31/25 08:08 Oxygen Delivery Method Room Air 07/31/25 08:08 BMI result Body Mass Index 28.6 Tobacco/Smoking Status: Tobacco use Status Tobacco use date assessed 07/21/25 07/31/25 08:11 Patient Tobacco Use Status Former Tobacco user 07/31/25 08:11 e-Cigarette/Vaping Use Never Used 07/31/25 08:11 PHQ-9: PHQ-9 Score PHQ-9: Total score 1 07/31/25 08:11 Depression Screening Interpretation: Positive (Better since starting sertraline 50 mg once a day, declines therapy) Depression Screening Follow-up: Existing condition, In treatment and Follow-up Visit Requested (Follow-up in 4 weeks after starting medication) Thrive Assessment: Date of Thrive Assessment Date Thrive assessed 03/29/25 07/31/25 08:11 Currently or been in a relationship where the following occur: No concerns reported Const General: comfortable Orientation/consciousness: patient oriented x3 Neck Neck: Yes full ROM, Yes no lymphadenopathy and Yes supple Resp Effort & Inspection: normal respiratory effort and able to speak in complete sentences Auscultation: clear to auscultation bilaterally Cardio Rate: regular rate Rhythm: regular rhythm Heart sounds: S1 normal heart sound present and S2 normal heart sound present GI Inspection: Yes obesity Palpation (GI): Soft to palpation, nontender and no guarding Auscultation: normal bowel sounds Back/Spine/Pelvis Back: No back tenderness Neuro General: patient oriented x3, gait normal, moves all extremities and no focal motor deficits Extrem Other: No knee crepitus on palpation, no tenderness on patient over both knee joints, no gross bone deformity or joint swelling seen General: Yes full ROM, Yes no joint enlargement, Yes no pedal edema and Yes normal gait Psych Appearance: grossly normal and well kempt Mental Status: mental status grossly normal Speech and movement: Normal speech and movement present Affect: normal affect Coding Level of Care Code Est Pt Level 4 (22117) Complex EM visit Add On G2211 Diagnoses Moderate episode of recurrent major depressive disorder F33.1 Depression Type: major depressive disorder Major depression recurrence: recurrent Active/Remission status: currently active Major depression episode severity: moderate Mixed dyslipidemia E78.2 Essential hypertension I10 Left anterior knee pain M25.562 Additional Codes PHQ-9 - 91921 - PHQ-9 Billing: Yes ([id number]) Assessment & Plan Assessment & Plan (1) Depression: Code(s): F32.A - Depression, unspecified Category: Medical Qualifiers: Depression Type: major depressive disorder Major depression recurrence: recurrent Active/Remission status: currently active Major depression episode severity: moderate Qualified Code(s): F33.1 - Major depressive disorder, recurrent, moderate Plan: Continued on sertraline, 50 mg daily, prescription sent for a 3 month supply to [facility]. (2) Mixed dyslipidemia: Code(s): E78.2 - Mixed hyperlipidemia Category: Medical Plan: Continued on pravastatin 40 mg at bedtime. Continue with [place] 3 fatty acid supplements, reinforced importance of following a low-cholesterol diet and getting regular exercise, advised to avoid walking or running and instead try exercising in the pool at [facility] (3) Essential hypertension: Code(s): I10 - Essential (primary) hypertension Category: Medical Plan: Blood pressure within acceptable limits. Continue with current medication. Reinforced importance of following a low sodium diet, getting regular exercise, and lowering stress levels. (4) Left anterior knee pain: Code(s): M25.562 - Pain in left knee Plan: Likely patellofemoral syndrome. Advised resting of joint, elevating as much as possible, stop doing the walking for now, ice applied to knee to or 3 times a day as needed alternating with a plication of Advil ointment, to be used as directed. If no improvement after 4 weeks, please let me know may need physical therapy or further evaluation Medications: Refilled sertraline 50 mg PO DAILY 90 tabs 2RF F33.1 - Major depressive disorder, recurrent, moderate
== END 2025-07-31 11:34 | disposition home or self-care (01) ==
LOC: HO.HMCC 07:58
PROVIDERS: PCP Internal Medicine; Visit Provider Internal Medicine
DX: F33.1 Major depressive disorder, recurrent, moderate (principal); E78.2 Mixed hyperlipidemia; I10 Essential (primary) hypertension; M25.562 Pain in left knee

== ENCOUNTER → 2025-07-31 07:57 | Outpatient (BNVA) | payer OTHER, SELFPAY | PROVIDERS: PCP Internal Medicine; Visit Provider Internal Medicine | DX: I10 Essential (primary) hypertension (principal); E78.2 Mixed hyperlipidemia; F41.9 Anxiety disorder, unspecified; N40.0 Benign prostatic hyperplasia without lower urinary tract symptoms; M25.562 Pain in left knee; F33.1 Major depressive disorder, recurrent, moderate; Z79.899 Other long term (current) drug therapy | CPT/HCPCS: 96127; 99212 ==

== ENCOUNTER 2025-08-08 09:29 | Outpatient (REF) | payer OTHER, SELFPAY ==
--- NOTE | ~2025-08-08 | XR_ITS ---
EXAMINATION: XR KNEE 4 OR MORE VIEWS LEFT HISTORY: M25.562 - Pain in left knee COMPARISON: There are no prior studies available for comparison. FINDINGS: Four views of the left knee are submitted. Osseous mineralization is normal. There is no fracture or dislocation. The joint spaces are preserved. The soft tissues are unremarkable. There is no joint effusion. XR/XR knee LT 4V IMPRESSION: Unremarkable examination of the left knee. Electronically signed by: Bharat Kirk MD 08/08/2025 09:50 AM EDT
== END 2025-08-08 09:30 | disposition home or self-care (01) ==
LOC: HO.HMGCX 09:29
PROVIDERS: PCP Internal Medicine; Visit Provider Internal Medicine
DX: M25.562 Pain in left knee (principal)
CPT/HCPCS: 73564

== ENCOUNTER → 2025-08-08 09:32 | Outpatient (BNV) | payer OTHER, SELFPAY | PROVIDERS: PCP Internal Medicine; Visit Provider Radiology Diagnostic Radiology | DX: M25.562 Pain in left knee (principal) | CPT/HCPCS: 73564 ==

== ENCOUNTER 2025-09-13 07:11 | Outpatient (REF) | payer OTHER, SELFPAY ==
[2025-09-13 11:57] LABS: Prostate Specific Antigen 1.89 ng/mL (<0.05-4.0)
== END 2025-09-13 07:12 | disposition home or self-care (01) ==
LOC: HO.HMGCLDS 07:11
PROVIDERS: PCP Internal Medicine; Visit Provider Urology
DX: N40.0 Benign prostatic hyperplasia without lower urinary tract symptoms (principal); Z12.5 Encounter for screening for malignant neoplasm of prostate
CPT/HCPCS: 36415; 84153

== ENCOUNTER 2025-10-06 08:22 | Outpatient (AMB) | payer OTHER, SELFPAY ==
--- NOTE | 2025-10-06 08:41 | A.OFFVIS_ITS ---
Intake Visit Reasons: 1Y PSA/PVR(set) Intake Note: Reason for Visit: 1Y PSA/PVR Urology Meds: Finasteride Blood Thinners: Aspirin Labs: PSA- 1.89- 09/13/2025 Imaging: None Last PVR: 38ml PVR: 94ml Telecommunications Sales Representative Required: No Accompanied by: Self / Same As Patient Allergies No Known Allergies (No Known Allergies*) Allergy (Verified 10/06/25 08:44) HPI Comments Details: He Hanson is a very pleasant male. He is a patient of Dr. Saini. He is seen in the office today for the following urologic conditions. - elevated PSA - lower urinary tract symptoms Yearly follow-up Mild PSA elevation on finasteride - 10/25 1.9 Continues Thursday, Thursday, Thursday Lost his in 2022. Tries to get out each week to his grandsons [employer] games. Continue yearly follow-up Elevated PSA/Abnormal KANIKA: PSA at low level Had stopped tamsulosin He can cut back on finasteride to 3 times a week Brother has moved to [place] He presents for further evaluation of elevated PSA. Current management is medication with 5AR. Current symptoms minimal nocturia, effective stream, effective emptying Laboratory investigations include a total PSA evaluation 01/18 4.7, 08/20 3.0, 02/19 2.8, 02/20 1.6, 07/24 1.2, 09/24 2.3, 09/26 1.9 Therapeutic plan will be continued surveillance. [facility] Medical History Depression Mixed dyslipidemia Impaired fasting glucose Essential hypertension Benign prostatic hyperplasia Surgical History Status post thoracostomy tube placement Family History Father CAD (coronary artery disease) HTN (hypertension) Myocardial infarction Mother Dementia Brother BPH (benign prostatic hyperplasia) Social History Housing: House Alcohol intake: never Patient Tobacco Use Status: Former Tobacco user Years Smoked: 10 yrs e-Cigarette/Vaping Use: Never Used Current occupational status: retired Cognitive needs: No Hearing needs: No Vision needs: Yes Review of Systems Const Denies chills and Denies fever(s) Card Reports no additional complaints and Denies syncope Resp Denies cough GI Denies abdominal pain and Denies heartburn Reports as per HPI and Denies change in libido Neuro Denies syncope Psych Denies change in libido Endo Denies change in libido Physical Exam Const General: cooperative, healthy appearing, comfortable and no acute distress Orientation/consciousness: patient oriented x3 HEENT Face and sinus: Yes normal facial exam Mouth: moist mucous membranes Neck Neck: Yes normal visual inspection, Yes full ROM and Yes trachea midline Chest Chest palpation & inspection: normal inspection of the chest Resp Effort & Inspection: normal respiratory effort, able to speak in complete sentences and no respiratory distress GI Inspection: Yes normal to inspection Back/Spine/Pelvis Cervical Spine: normal cervical lordosis Thoracic/Lumbar Spine: thoracic and lumbar spine normal to inspection Skin General skin exam: no rashes or lesions noted Neuro General: patient oriented x3, gait normal, tone normal and moves all extremities Extrem General: Yes normal to inspection and Yes capillary refill normal Office Procedures Post Void Residual Post Residual Void Post Void Residual (PVR): [id number] Void Residual by ultrasound Assessment & Plan Assessment & Plan (1) Benign prostatic hyperplasia: Code(s): N40.0 - Benign prostatic hyperplasia without lower urinary tract symptoms Category: Medical Qualifiers: Lower urinary tract symptom presence: symptoms absent Qualified Code(s): N40.0 - Benign prostatic hyperplasia without lower urinary tract symptoms Plan Twelve month follow-up Orders: Orders AMB Post Void Residual by ultrasound Today N40.0 - Benign prostatic hyperplasia without lower urinary tract symptoms Patient Instructions: This note is constructed using voice recognition software. While every effort has been made to ensure accuracy scientific investigator errors may have been included. Imaging studies, laboratory and physical exam results were discussed and reviewed in detail. No major barriers to patient understanding were identified. An opportunity to ask questions regarding the treatment plan was provided. All questions were answered. The patient expressed understanding and agreement with the above treatment plan. The patient is aware they should contact our office by phone for worsening of their current condition or the appearance of new urologic symptoms. Compliance is encouraged with any medications and followup testing that is ordered. It is a privilege to participate in the urologic care of your patient. If you have any questions or concerns regarding treatment for the above conditions, or other urologic issues, please do not hesitate to contact me. The office telephone contact is [phone]. Sincerely, Dr Singh Peñaloza MD, [facility] - Urology Compassionate Specialist Care for the Genitourinary System Coding Level of Care Code Est Pt Level 4 (95175) Complex visit Add On G2211 Diagnoses Benign prostatic hyperplasia without lower urinary tract symptoms N40.0 Lower urinary tract symptom presence: symptoms absent CPT Codes Post Residual Void - PVR CPT Code: 59572-Pgka Void Residual by ultrasound ([id number])
== END 2025-10-06 09:06 | disposition home or self-care (01) ==
LOC: HO.HUSH 08:22
PROVIDERS: PCP Internal Medicine; Visit Provider Urology
DX: N40.0 Benign prostatic hyperplasia without lower urinary tract symptoms (principal)
CPT/HCPCS: 99214

== ENCOUNTER → 2025-10-06 08:22 | Outpatient (BNVA) | payer OTHER, SELFPAY | PROVIDERS: PCP Internal Medicine; Visit Provider Urology | DX: N40.1 Benign prostatic hyperplasia with lower urinary tract symptoms (principal); R35.1 Nocturia | CPT/HCPCS: 51798; 99212 ==